=== PATIENT | male | born 1970 | race African-American/Black ===

== ENCOUNTER 2016-05-13 12:55 | Outpatient (CLI) ==
[2014-02-25 23:45] VITALS: BMI 26.1
[2016-05-13 13:44] LABS: CREATININE 1.4 mg/dL (0.60-1.10)
--- NOTE | 2016-05-13 14:06 | CT ---
EXAM: CT cervical spine without contrast. HISTORY: Neck pain. COMPARISON: 02/05/2015. TECHNIQUE: Multiple axial images of the cervical spine were obtained without intravenous contrast. Images were reformatted in the sagittal and coronal planes. FINDINGS: There is less than 0.2 cm retrolisthesis of C3 on C4. Alignment is otherwise normal. Th e vertebral body heights are maintained. There is mild loss of disc height at C3-4 and C5-6. No fra cture identified. Paravertebral soft tissues are without acute abnormality. C2-3: Uncovertebral hypertrophy and facet arthropathy with mild left neural foraminal narrowing. C3-4: Broad-based disc bulge, uncovertebral hypertrophy and facet arthropathy with mild to moderate central canal stenosis and mild right and moderate left neural foraminal narrowing. C4-5: Broad-based disc bulge, uncovertebral hypertrophy and facet arthropathy with mild central can al stenosis and moderate right and severe left neural foraminal narrowing. C5-6: Disc osteophyte formation, uncovertebral hypertrophy and facet arthropathy with moderate cent ral canal stenosis and severe bilateral neural foraminal narrowing. C6-7: Disc osteophyte formation, uncovertebral hypertrophy and facet arthropathy with mild to moder ate central canal stenosis and mild right and moderate left neural foraminal narrowing. C7-T1: Uncovertebral hypertrophy and facet arthropathy with mild neural foraminal narrowing. Since the prior study, there has been no significant interval change. IMPRESSION: 1. No acute fracture. 2. Stable multilevel degenerative changes as described.
== END 2016-05-13 12:56 | disposition home or self-care (01) ==
LOC: RAD 12:55
PROVIDERS: ATTEND Nurse Practitioner
DX: R91.8 Other nonspecific abnormal finding of lung field (principal); M54.2 Cervicalgia
CPT/HCPCS: 36415; 82565

== ENCOUNTER 2016-05-14 12:48 | Outpatient (CLI) ==
[2014-02-25 23:45] VITALS: BMI 26.1
--- NOTE | 2016-05-14 13:52 | CT ---
EXAM: CT of the chest with and without contrast History: Chest pain, abnormal chest radiograph Comparison: Chest radiograph 02/28/2016, chest CT 08/23/2015 Technique: Multiplanar CT images through the thorax were obtained with and without the administrati on of IV contrast Findings: Heart is borderline enlarged. Great vessels are unremarkable. No pathologically enlarge d thoracic lymph nodes. No significant interval change in the small chronic right pleural effusion and chronic right lower p leural thickening with stable chronic area of rounded atelectasis in the right lower lobe. Pneumoth orax. No developing lung opacities. Stable 4 mm left lower lobe lung nodule. No developing lung n odules. Within the visualized upper abdomen, fatty liver. Subacute right lateral sixth and seventh rib frac tures with callous formation. Degenerative disc disease seen within the lower cervical spine. Impression: 1. No change in the small chronic right pleural effusion and chronic right lower pleural thickening with stable chronic area of rounded atelectasis in the right lower lobe. 2. No developing lung opacities. 3. Borderline cardiomegaly. 4. Fatty liver. 5. Subacute right lateral sixth and seventh rib fractures with callous formation.
== END 2016-05-14 12:49 | disposition home or self-care (01) ==
LOC: RAD 12:48
PROVIDERS: ATTEND Nurse Practitioner
DX: R91.8 Other nonspecific abnormal finding of lung field (principal); M54.2 Cervicalgia

== ENCOUNTER 2016-05-27 09:52 | Outpatient (CLI) ==
[2014-02-25 23:45] VITALS: BMI 26.1
== END 2016-05-27 09:53 | disposition home or self-care (01) ==
LOC: WOUND 09:52
PROVIDERS: ATTEND Nurse Practitioner Family
DX: B35.3 Tinea pedis (principal); I69.90 Unspecified sequelae of unspecified cerebrovascular disease
CPT/HCPCS: 99203; 99212

== ENCOUNTER 2016-07-01 10:22 | Outpatient (CLI) ==
[2014-02-25 23:45] VITALS: BMI 26.1
== END 2016-07-01 10:23 | disposition home or self-care (01) ==
LOC: WOUND 10:22
PROVIDERS: ATTEND Nurse Practitioner Family
DX: B35.3 Tinea pedis (principal); I69.90 Unspecified sequelae of unspecified cerebrovascular disease
CPT/HCPCS: 99212

== ENCOUNTER 2016-09-04 09:53 | Outpatient (CLI) ==
[2014-02-25 23:45] VITALS: BMI 26.1
--- NOTE | 2016-09-04 10:56 | CT ---
EXAM: CT abdomen with and without contrast. CT pelvis with and without contrast. HISTORY: Lower abdominal pain, greater on the left. COMPARISON: None available. TECHNIQUE: Multiple axial images of the abdomen and pelvis were obtained prior to and following int ravenous administration of 75 mL of Omnipaque 350, low osmolar. Images reformatted in the coronal p julieta. FINDINGS: A small right pleural effusion with extensive right posterior pleural thickening and subp leural round consolidation in the right lower lobe noted. Two 0.4 cm left lower lobe nodules noted on noncontrast axial images 15 and 17. These findings are stable since at least 11/20/[address] Degenerative changes present throughout the spine. Bilateral spondylosis at L5 noted with slight anterolisthesis of L5 on S1. The liver, gallbladder, pancreas, spleen, adrenal glands, and kidneys are unremarkable. There is mild fluid distension of a few small bowel loops in the left lower quadrant. No bowel wall thickening or transition point identified. Colon is normal in caliber. The appendix is normal. A duodenal diverticulum is present. Urinary bladder is unremarkable. No free fluid, free air or lym phadenopathy identified. Atherosclerotic calcifications are present. IMPRESSION: Suspect mild enteritis.
== END 2016-09-04 09:54 | disposition home or self-care (01) ==
LOC: RAD 09:53
PROVIDERS: ATTEND Nurse Practitioner
DX: R10.9 Unspecified abdominal pain (principal)

== ENCOUNTER 2016-09-17 11:40 | Outpatient (CLI) ==
[2014-02-25 23:45] VITALS: BMI 26.1
--- NOTE | 2016-09-17 12:06 | DI ---
EXAM: Two views of the chest. History: Chest pain, exposure to black mold Comparison: Chest radiograph 02/28/2016 Findings: Heart is borderline enlarged. No significant interval change in the chronic right lower lung infiltrate and chronic small right pleural effusion. Left lung is grossly clear. No pneumotho rax. The visualized osseous structures unchanged. Impression: No significant interval change in cardiopulmonary status.
== END 2016-09-17 11:41 | disposition home or self-care (01) ==
LOC: RAD 11:40
PROVIDERS: ATTEND Nurse Practitioner
DX: S27.301A Unspecified injury of lung, unilateral, initial encounter (principal)

== ENCOUNTER 2016-09-30 19:49 | Emergency (ER) ==
[2016-09-30 19:58] VITALS: BP 167/89; TEMP 98.7; BMI 29.3
[2016-09-30 20:40] LABS: BASOPHILS % (AUTO) 0.5 % (0.0-3.0); EOSINOPHILS # (AUTO) 0.3 K/ul (0.0-0.7); HEMATOCRIT 49.8 % (42.0-52.0); HEMOGLOBIN 16.7 g/dl (14.0-18.0); IMMATURE GRANULOCYTE % (AUTO) 0.2 % (0.0-5.0); LYMPHOCYTES # (AUTO) 1.6 K/uL (0.60-3.4); LYMPHOCYTES % (AUTO) 20.1 (10.0-50.0); MEAN CORPUSCULAR HEMOGLOBIN 30.9 pg (27.0-31.0); MEAN CORPUSCULAR HGB CONC 33.5 (31.8-35.4); MEAN CORPUSCULAR VOLUME 92.1 fl (80.0-94.0); MONOCYTES # (AUTO) 0.9 K/uL (0.4-2.0); MONOCYTES % (AUTO) 10.8 (0-10); NEUTROPHILS # (AUTO) 5.2 K/ul (2.0-6.9); NEUTROPHILS % (AUTO) 64.4; PLATELET COUNT 141 10^3/uL (140-440); RED BLOOD COUNT 5.41 10^6/ul (4.70-6.10); WHITE BLOOD COUNT 8.04 K/ul (4.2-10.2)
--- NOTE | 2016-09-30 20:49 | ED.PDOC ---
General ED Provider: Dr. SUMAN DAVILA Chief Complaint: Abdominal Pain Stated Complaint: Abdominal pain, left side more, had similar episodes last moth , no diarrhea. also hurting in the neck, sharp shooting type of pains. also been coughing, congested. Time Seen by Physician: 20:49 Mode of Arrival: Walk-In Information Source: Patient Primary Care Provider: NADER HER Nursing and Triage Documentation Reviewed and Agree: Yes GI Complaint Exam - Abdominal Pain Complaint/Exam Onset: Gradual Symptoms Are: Still present Timing: Constant Initial Severity: Moderate Current Severity: Moderate Location of Pain: LLQ Radiates To: Reports: Back Character: Reports: Aching, Throbbing Aggravating: Reports: Movement Alleviating: Reports: None Associated Signs and Symptoms: Denies: Diaphoresis, Fever, Cough, Chest pain, Dizziness, Back pain, Constipation, Blood in stool, Dysuria, Urinary frequency, Decreased urine output, Decreased appetite, Discharge, Nausea, Vomiting, Diarrhea, Decreased activity Related History: Reports: Similar episode AAA Risk Factors: Reports: None Cardiac Risk Factors: Reports: None Testicular Torsion Risk Factors: Reports: None Surgical Obstruction Risk Factors: Reports: None Related Surgical History: Reports: None Abdominal Findings: Present: None Differential Diagnoses: Gastroenteritis, Pancreatitis Review of Systems - Review Of Systems Constitutional: Reports: Malaise, Weakness Eyes: Reports: No symptoms Ears, Nose, Mouth, Throat: Reports: No symptoms Respiratory: Reports: No symptoms Cardiac: Reports: No symptoms GI: Reports: Abdomen distended, Abdominal pain : Reports: No symptoms Musculoskeletal: Reports: Muscle pain, Muscle stiffness, Neck pain Skin: Reports: No symptoms Neurological: Reports: No symptoms Endocrine: Reports: No symptoms Hematologic/Lymphatic: Reports: No symptoms All Other Systems: Reviewed and Negative Past Medical History - Past Medical History Previously Healthy: Yes Endocrine: Reports: None, Dyslipidemia Cardiovascular: Reports: Hypertension Respiratory: Reports: None Hematological: Reports: None Gastrointestinal: Reports: GERD Genitourinary: Reports: None Neuro/Psych: Reports: CVA, Anxiety Musculoskeletal: Reports: Arthritis, Back Pain Cancer: Reports: None - Surgical History General Surgical History: Reports: None - Family History Family History: Reports: None - Social History Smoking Status: Current every day smoker Smoking Cessation Counseling Time: > 3 min - 10 min Hx Substance Use: No Alcohol Screening: Heavy - Immunizations Tetanus Shot up to Date: Yes Physical Exam - Physical Exam Appearance: Ill-appearing, Obese Pain Distress: Mild Eyes: JESSICA, EOMI, Conjunctiva clear ENT: Ears normal, Nose normal, Oropharynx normal Respiratory: Airway patent, Breath sounds clear, Breath sounds equal, Respirations nonlabored Cardiovascular: RRR, Pulses normal, No rub, No murmur GI/: Tender Musculoskeletal: Normal strength, ROM intact, No edema, No calf tenderness Skin: Warm, Dry, Normal color Neurological: Sensation intact, Motor intact, Reflexes intact, Cranial nerves intact, Alert, Oriented Psychiatric: Affect appropriate, Mood appropriate Interpretation - Radiology Interpretation Radiology Interpretation By: Radiologist Radiology Results: Negative Exam Interpreted: CT Scan Critical Care Note - Critical Care Note Total Time (mins): 0 Course - Course Hematology/Chemistry: 09/30/16 20:35 09/30/16 20:35 Orders, Labs, Meds: Lab Review 09/30/16 20:35 WBC 8.04 RBC 5.41 Hgb 16.7 Hct 49.8 MCV 92.1 MCH 30.9 MCHC 33.5 RDW Coeff of Matthew 13.4 Plt Count 141 Immature Gran % (Auto) 0.2 Neut % (Auto) 64.4 Lymph % (Auto) 20.1 [place] % (Auto) 10.8 H Eos % (Auto) 4.0 Baso % (Auto) 0.5 Immature Gran # (Auto) 0.0 Neut # 5.2 Lymph # 1.6 [place] # 0.9 Eos # 0.3 Baso # 0.0 Sodium 140 Potassium 4.0 Chloride 103 Carbon Dioxide 29 Anion Gap 12.0 BUN 19 H Creatinine 1.24 H Estimated GFR (MDRD) 76.00 BUN/Creatinine Ratio 15.32 Glucose 98 Calcium 9.6 Total Bilirubin 0.43 AST 25 ALT 36 Alkaline Phosphatase 81 Total Protein 7.6 Albumin 3.8 Globulin 3.8 Albumin/Globulin Ratio 1.00 Amylase 63 Lipase 60 Orders Category Date Time Status AMYLASE Stat LAB 09/30/16 20:35 Completed CBC W/ AUTO DIFF Stat LAB 09/30/16 20:35 Completed COMPREHENSIVE METABOLIC PANEL Stat LAB 09/30/16 20:35 Completed LIPASE Stat LAB 09/30/16 20:[address] ABDOMEN/PELVIS WO CONTRAST Stat RADS 09/30/16 20:[address] CERVICAL SPINE W/O CONTRAST Stat RADS 09/30/16 20:[address] CHEST W/O CONTRAST Stat RADS 09/30/16 20:58 Completed Vital Signs: Temp Pulse Resp BP Pulse Ox 09/30/16 19:50 98.7 F 73 20 167/89 H 93 L Departure - Departure Time of Disposition: 21:38 Disposition: HOME SELF-CARE Discharge Problem: Acute upper respiratory infection Instructions: Upper Respiratory Infection (ED) Condition: Stable Pt referred to PMD for follow-up: Yes Additional Instructions: advised to quite smoking. If not better needs f/u PMD take medication with food. Prescriptions: Cephalexin [Keflex] 500 mg PO Q12HR #20 capsule Prednisone 10 mg PO BIDWM #14 tablet Allergies/Adverse Reactions: Allergies No Known Allergies Allergy (Verified 09/30/16 19:57) Home Medications: Ambulatory Orders Enalapril Maleate [Vasotec] 10 mg PO DAILY 11/01/12 Budesonide/Formoterol Fumarate [Symbicort 80-4.5 Mcg Inhaler] 2 inh INH BID 10/07 Ranitidine HCl [Zantac] 150 mg PO BIDAC 02/25/14 Aspirin 81 mg PO ONCE 11/13/15 Atorvastatin Calcium [Lipitor] 20 mg PO DAILY 11/13/15 Cephalexin [Keflex] 500 mg PO Q12HR #20 capsule 09/30/16 Prednisone 10 mg PO BIDWM #14 tablet 09/30/16 Disposition Discussed With: Patient
[2016-09-30 20:57] LABS: ALBUMIN 3.8 g/dL (3.4-5.0); BILIRUBIN,TOTAL 0.43 mg/dL (0.00-1.20); BUN/CREATININE RATIO 15.32; CALCIUM 9.6 mg/dL (8.2-10.2); CREATININE 1.24 mg/dL (0.60-1.10); TOTAL PROTEIN 7.6 g/dL (6.4-8.2)
--- NOTE | 2016-09-30 21:25 | CT ---
EXAM: CT cervical spine without contrast. HISTORY: Neck pain. COMPARISON: 05/13/2016. TECHNIQUE: Multiple axial images of the cervical spine were obtained without intravenous contrast. Images were reformatted in the sagittal and coronal planes. FINDINGS: Alignment is normal. Vertebral body heights are maintained. Moderate loss of disc heigh t at C5-6 with more mild loss of disc height at C3-4 and C6-7. No fracture or subluxation detected. Paravertebral soft tissues are without acute abnormality. C2-3: No neural compromise. C3-4: Uncovertebral hypertrophy and facet arthropathy with mild right and moderate left neural fora lauren narrowing. Posterior disc bulge causes mild spinal stenosis. C4-5: Broad-based disc bulge, uncovertebral hypertrophy and facet arthropathy with mild spinal sten osis and mild to moderate right and moderate to severe left neural foraminal narrowing. C5-6: Disc osteophyte formation, uncovertebral hypertrophy and facet arthropathy with moderate spin al stenosis and severe neural foraminal narrowing. C6-7: Disc osteophyte formation, uncovertebral hypertrophy and facet arthropathy with mild spinal s tenosis and moderate left neural foraminal narrowing. C7-T1: Uncovertebral hypertrophy and facet arthropathy with mild neural foraminal narrowing IMPRESSION: 1. No fracture. 2. Multilevel degenerative changes as described, greatest at C5-6.
--- NOTE | 2016-09-30 21:31 | CT ---
EXAM: CT scan thorax without contrast HISTORY: Cough pain COMPARISON: CT scan thorax 05/14/2016 FINDINGS: Contiguous axial images obtained through the thorax without contrast utilizing 5-mm colli mation. Sagittal and coronal reconstructions were imaged and reviewed.. The thoracic inlet is unre markable. There are subcentimeter pretracheal and AP window lymph nodes.. The heart is top normal in size without pericardial effusion.. The left lung is clear. There is a stable tiny right pleural effusion with right basilar pleural thickening and dependent atelectasis.. There is stable appeari ng likely round atelectasis at the right lung base.. There is stable left adrenal adenoma measuring 15.7 mm. IMPRESSION: Significant change in the small chronic right pleural effusion with adjacent pleural thickening and atelectasis. Borderline cardiomegaly without pericardial effusion.
--- NOTE | 2016-09-30 21:32 | CT ---
EXAM: CT abdomen pelvis without contrast TECHNIQUE: Helical axial CT of the abdomen pelvis was performed without contrast with coronal and s agittal reconstructions. COMPARISON: CT abdomen pelvis from 09/04/2016 HISTORY: Abdominal pain FINDINGS: There is no acute intervening abnormality. Again seen are some pleural parenchymal shrestha es in the right base consistent with atelectasis and effusion. There is no intervening free air zoey e fluid or bowel wall thickening or edema or obstruction or ileus. There are no pathologic lymph no jasson. There is some mild atherosclerosis. There are degenerative changes in the lumbar spine partic ularly at the lumbosacral junction. There are bilateral pars defects with trace anterolisthesis at the lumbosacral junction. Again seen is a duodenal diverticulum. The appendix is normal as well as the gallbladder. The liver, spleen, pancreas, kidneys are unremarkable with no kidney stones and n o hydronephrosis. The urinary bladder is normal with no filling defects. IMPRESSION: 1. No acute intervening abnormality. 2. Continued atelectasis and small effusion in the right base. 3. Duodenal diverticulum. 4. Bilateral pars defects at the lumbosacral junction with trace anterolisthesis.
[2016-09-30] MEDS ORDERED: DECADRON 4 MG/ML SDV IM STA (21:39)
[2016-09-30] MEDS ORDERED: KEFLEX PO STA (21:39)
== END 2016-09-30 22:07 | disposition home or self-care (01) ==
LOC: ED 19:49
DX: J06.9 Acute upper respiratory infection, unspecified (principal); R10.32 Left lower quadrant pain; M54.2 Cervicalgia; I10 Essential (primary) hypertension; E78.5 Hyperlipidemia, unspecified; Z86.73 Personal history of transient ischemic attack (TIA), and cerebral infarction without residual deficits; F17.210 Nicotine dependence, cigarettes, uncomplicated; Z79.899 Other long term (current) drug therapy
CPT/HCPCS: 36415; 80053; 82150; 83690; 85025; 96372; 99283

== ENCOUNTER 2016-10-08 12:24 | Emergency (ER) ==
[2016-10-08 12:32] VITALS: BP 139/89; TEMP 97.8; BMI 29.2
[2016-10-08 12:52] LABS: BASOPHILS # (AUTO) 0.1 K/uL (0-0.2); BASOPHILS % (AUTO) 0.6 % (0.0-3.0); EOSINOPHILS # (AUTO) 0.1 K/ul (0.0-0.7); EOSINOPHILS % (AUTO) 0.6 % (0.0-7.0); HEMATOCRIT 49.3 % (42.0-52.0); HEMOGLOBIN 16.9 g/dl (14.0-18.0); IMMATURE GRANULOCYTE % (AUTO) 0.6 % (0.0-5.0); LYMPHOCYTES # (AUTO) 1.1 K/uL (0.60-3.4); LYMPHOCYTES % (AUTO) 13.9 (10.0-50.0); MEAN CORPUSCULAR HEMOGLOBIN 31.2 pg (27.0-31.0); MEAN CORPUSCULAR HGB CONC 34.3 (31.8-35.4); MEAN CORPUSCULAR VOLUME 91.1 fl (80.0-94.0); MONOCYTES # (AUTO) 0.5 K/uL (0.4-2.0); MONOCYTES % (AUTO) 6.1 (0-10); NEUTROPHILS # (AUTO) 6.3 K/ul (2.0-6.9); NEUTROPHILS % (AUTO) 78.2; PLATELET COUNT 191 10^3/uL (140-440); RED BLOOD COUNT 5.41 10^6/ul (4.70-6.10); WHITE BLOOD COUNT 8.07 K/ul (4.2-10.2)
[2016-10-08 13:18] LABS: ALBUMIN 4.2 g/dL (3.4-5.0); ALBUMIN/GLOBULIN RATIO 1.11; ANION GAP 13.6; BILIRUBIN,TOTAL 0.56 mg/dL (0.00-1.20); BUN/CREATININE RATIO 20.86; CALCIUM 9.6 mg/dL (8.2-10.2); CREATININE 1.39 mg/dL (0.60-1.10); POTASSIUM 4.6 mmol/L (3.5-5.1); TROPONIN I 0.022 ng/ml (0.0000-0.4000)
--- NOTE | 2016-10-08 13:23 | CT ---
EXAM: CT Abdomen without contrast. CT Pelvis without contrast. HISTORY: Abdominal distension. Lower abdominal pain. COMPARISON: 09/30/2016. TECHNIQUE: Multiple axial images of the abdomen and pelvis were obtained without intravenous contra st. Images were reformatted in the coronal plane. FINDINGS: Please note that evaluation of the abdominal and pelvic structures is limited due to lack of intravenous contrast. Right basilar pleural thickening with small amount of fluid and rounded consolidation in the posteri or right lower lobe appear stable, as do left lower lobe micronodules. Degenerative changes present in the spine. Bilateral spondylolysis at L5 noted. The liver, gallbladder, pancreas, spleen, adrenal glands, and kidneys demonstrate normal contour. N o calcified renal stones or hydronephrosis detected. Duodenal diverticulum is present. The bowel is normal in course and caliber without evidence for ob struction or inflammatory process. The appendix is normal. Urinary bladder is unremarkable. No fr ee fluid or free air identified. Atherosclerotic calcifications are present. IMPRESSION: No acute abnormality within the abdomen or pelvis.
--- NOTE | 2016-10-08 13:28 | CT ---
EXAM: CT chest without contrast HISTORY: Cough COMPARISON: CT abdomen pelvis same day and CT chest 09/30/2016 with multiple priors TECHNIQUE: Serial axial images of the chest were obtained from the lung apices to the upper abdomen without contrast. These were viewed in multiple planes. FINDINGS: The thyroid is normal. The aorta is unremarkable. The pulmonary arteries are upper limi t of normal. The heart is normal in size without pericardial effusion. There are no pathologically enlarged mediastinal or hilar lymph nodes. Chronic right effusion with dense consolidation and pleural thickening is unchanged. There is mild p atchy air trapping. There is a 0.3 cm left lower lobe pulmonary nodule on image 48. The airways ar e patent. The liver demonstrates minimal low attenuation. Soft tissues are unremarkable. The osseous structu res are unremarkable. IMPRESSION: 1. No significant change in right pleural effusion with adjacent pleural thickening. 2. 0.3 cm left lower lobe pulmonary nodule is stable since 02/20/2009 and considered benign. 3. Mild low attenuation of the liver suggestive of hepatic steatosis.
[2016-10-08 13:30] LABS: ADD URINE MICROSCOPIC NO; BILIRUBIN,URINE Negative (NEGATIVE); KETONES,URINE Negative (NEGATIVE); LEUKOCYTE ESTERASE ,URINE Negative (NEGATIVE); NITRITE,URINE Negative (NEGATIVE); PH,URINE 5.5 (5-9); PROTEIN,URINE Negative (NEGATIVE); URINE, BLOOD Negative (NEGATIVE)
[2016-10-08 13:38] LABS: COCAIN SCREEN,URINE NEGATIVE (NEGATIVE)
[2016-10-08] MEDS ORDERED: ATIVAN IM STA (14:04)
--- NOTE | 2016-10-08 14:09 | ED.PDOC ---
General ED Provider: Dr. RAMSES TILLMAN Chief Complaint: Dizziness Stated Complaint: dizziness, neck pain Time Seen by Physician: 12:27 Mode of Arrival: Walk-In Information Source: Patient Exam Limitations: No limitations Primary Care Provider: NADER HER Nursing and Triage Documentation Reviewed and Agree: Yes Miscellaneous Complaint Exam - Complex/Multi-System Complaint/Exam Onset/Duration: pt uncertain Symptoms Are: Still present Episodes Lasting: Days Initial Severity: Moderate Current Severity: Mild Location of Pain: neck posterior chest pain Pain Radiates to: neck upper back Character: dull Associated Signs and Symptoms: Denies: Decreased responsiveness, Confusion, Agitation, Dizziness, Weakness, Syncope, Headache, Short of air, Cough, Wheezing , Hemoptysis, Chest pain, Palpitations, Edema, Nausea, Vomiting, Diarrhea, Abdominal pain, Back pain, Dysuria, Hematemesis, Melena, Decreased oral intake, Fever, Diaphoresis, Immunocompromised, Anticoagulation Therapy, Recent medication changes, 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 Quality Indicators for AMI: EKG in 10min. Quality Indicator For Non-Traumatic Chest Pain/Syncope: EKG Performed Review of Systems - Review Of Systems Constitutional: Reports: No symptoms Eyes: Reports: No symptoms Ears, Nose, Mouth, Throat: Reports: No symptoms Respiratory: Reports: No symptoms Cardiac: Reports: No symptoms GI: Reports: No symptoms : Reports: No symptoms Musculoskeletal: Reports: Neck pain Skin: Reports: No symptoms Neurological: Reports: No symptoms Endocrine: Reports: No symptoms Hematologic/Lymphatic: Reports: No symptoms All Other Systems: Reviewed and Negative Past Medical History - Past Medical History Previously Healthy: Yes Endocrine: Reports: None, Dyslipidemia Cardiovascular: Reports: Hypertension Respiratory: Reports: None Hematological: Reports: None Gastrointestinal: Reports: GERD Genitourinary: Reports: None Neuro/Psych: Reports: CVA, Anxiety Musculoskeletal: Reports: Arthritis, Back Pain Cancer: Reports: None - Surgical History General Surgical History: Reports: None - Family History Family History: Reports: None - Social History Smoking Status: Current every day smoker Hx Substance Use: No Alcohol Screening: Heavy Physical Exam - Physical Exam Appearance: Well-appearing, No pain distress, Well-nourished Eyes: JESSICA, EOMI, Conjunctiva clear ENT: Ears normal, Nose normal, Oropharynx normal Respiratory: Airway patent, Breath sounds clear, Breath sounds equal, Respirations nonlabored Cardiovascular: RRR, Pulses normal, No rub, No murmur GI/: Soft, Nontender, No masses, Bowel sounds normal, No Organomegaly Musculoskeletal: Normal strength, ROM intact, No edema, No calf tenderness Skin: Warm, Dry, Normal color Neurological: Sensation intact, Motor intact, Reflexes intact, Cranial nerves intact, Alert, Oriented Psychiatric: Affect appropriate, Mood appropriate Interpretation - Radiology Interpretation Radiology Interpretation By: Radiologist Radiology 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: 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 Rhythm: Sinus Ectopy: None - EKG Interpretation Rate: Normal Rhythm: Sinus (1 mm) Ectopy: None [place]: NL (tion) ST Segment: Other (1 mm JEREMIAS avr rule out triple vessel disease or lad main stem obstruction) Physician Notification - Case Discussed Physician Notified: poonam CHENG Time of Notification: 14:18 Critical Care Note - Critical Care Note Total Time (mins): 0 Course - Course Hematology/Chemistry: 10/08/16 12:45 10/08/16 12:45 Orders, Labs, Meds: Lab Review 10/08/16 10/08/16 12:45 13:15 WBC 8.07 RBC 5.41 Hgb 16.9 Hct 49.3 MCV 91.1 MCH 31.2 H MCHC 34.3 RDW Coeff of [place] 13.6 Plt Count 191 Immature Gran % (Auto) 0.6 Neut % (Auto) 78.2 Lymph % (Auto) 13.9 [place] % (Auto) 6.1 Eos % (Auto) 0.6 Baso % (Auto) 0.6 Immature Gran # (Auto) 0.1 Neut # 6.3 Lymph # 1.1 [place] # 0.5 Eos # 0.1 Baso # 0.1 Sodium 138 Potassium 4.6 Chloride 102 Carbon Dioxide 27 Anion Gap 13.6 BUN 29 H Creatinine 1.39 H Estimated GFR (MDRD) 67.00 BUN/Creatinine Ratio 20.86 Glucose 118 H Calcium 9.6 Total Bilirubin 0.56 AST 27 ALT 39 Alkaline Phosphatase 71 Total Creatine Kinase 90 Troponin I 0.0220 Total Protein 8.0 Albumin 4.2 Globulin 3.8 Albumin/Globulin Ratio 1.11 Urine Color Yellow Urine Clarity Clear Urine pH 5.5 Ur Specific [place] <=1.005 Urine Protein Negative Urine Glucose (UA) Negative Urine Ketones Negative Urine Blood Negative Urine Nitrite Negative Urine Bilirubin Negative Urine Urobilinogen 0.2 Ur Leukocyte Esterase Negative Urine Opiates Screen Negative Ur Oxycodone Screen Negative Urine Methadone Screen Negative Ur Propoxyphene Screen Negative Ur Barbiturates Screen Negative U Tricyclic Antidepress Negative Ur Phencyclidine Scrn Negative Ur Amphetamine Screen Negative U Methamphetamines Scrn Negative U Benzodiazepines Scrn Negative Urine Cocaine Screen Negative U Cannabinoids Screen Negative Orders Category Date Time Status EKG-(ED ONLY) Stat CARDIO 10/08/16 12:38 Completed CBC W/ AUTO DIFF Stat LAB 10/08/16 12:45 Completed COMPREHENSIVE METABOLIC PANEL Stat LAB 10/08/16 12:45 Completed CREATINE KINASE Stat LAB 10/08/16 12:45 Completed TROPONIN I Stat LAB 10/08/16 12:45 Completed URINALYSIS C & S IF INDICATED Stat LAB 10/08/16 13:15 Completed URINE DRUG SCREEN (RAPID FOR ED) [DRUG SCREEN, URINE, LAB 10/08/16 13:15 Completed RAPID] Stat Lorazepam Inj [Ativan] MEDS 10/08/16 14:04 Discontinued 1 mg IM ONCE STA CT ABDOMEN/PELVIS WO CONTRAST Stat RADS 10/08/16 12:[address] CHEST W/O CONTRAST Stat RADS 10/08/16 12:37 Completed Medications Discontinued Medications Generic Name Dose Route Start Last Admin Trade Name Renny PRN Reason Stop Dose Admin Lorazepam 1 mg 10/08/16 14:04 Ativan IM 10/08/16 14:05 ONCE STA Vital Signs: Temp Pulse Resp BP Pulse Ox 10/08/16 12:27 97.8 F 74 16 139/89 94 L Departure - Departure Time of Disposition: 14:17 Disposition: TSF SHORT-TRM HOSP Discharge Problem: Atypical chest pain, Dizziness Instructions: Dizziness (ED) Condition: Good Pt referred to PMD for follow-up: No Additional Instructions: Please call your Family Physician as soon as possible to schedule a follow-up appointment. Allergies/Adverse Reactions: Allergies No Known Allergies Allergy (Verified 10/08/16 12:26) Home Medications: Ambulatory Orders Enalapril Maleate [Vasotec] 10 mg PO DAILY 11/01/12 Budesonide/Formoterol Fumarate [Symbicort 80-4.5 Mcg Inhaler] 2 inh INH BID 10/07 Ranitidine HCl [Zantac] 150 mg PO BIDAC 02/25/14 Aspirin 81 mg PO ONCE 11/13/15 Atorvastatin Calcium [Lipitor] 20 mg PO DAILY 11/13/15 Cephalexin [Keflex] 500 mg PO Q12HR #20 capsule 09/30/16 Prednisone 10 mg PO BIDWM #14 tablet 09/30/16 Disposition Discussed With: Patient
== END 2016-10-08 15:09 | disposition short-term general hospital (02) ==
LOC: ED 12:24
DX: R07.89 Other chest pain (principal); R42 Dizziness and giddiness; M54.2 Cervicalgia; E78.5 Hyperlipidemia, unspecified; I10 Essential (primary) hypertension; F17.210 Nicotine dependence, cigarettes, uncomplicated; Z86.73 Personal history of transient ischemic attack (TIA), and cerebral infarction without residual deficits; Z79.899 Other long term (current) drug therapy
CPT/HCPCS: 36415; 80053; 80306; 81001; 82550; 84484; 85025; 93005; 93010; 96372; 99285

== ENCOUNTER 2016-10-08 15:16 | Outpatient (CLI) ==
[2016-10-08 12:32] VITALS: BMI 29.2
== END 2016-10-08 15:17 | disposition short-term general hospital (02) ==
LOC: AMBL 15:16
PROVIDERS: ATTEND Internal Medicine
DX: R94.31 Abnormal electrocardiogram [ECG] [EKG] (principal)

== ENCOUNTER 2016-10-16 09:23 | Outpatient (CLI) ==
--- NOTE | 2016-10-16 10:59 | CT ---
Exam: CT lumbar spine without contrast. Clinical indication: Low back pain. TECHNIQUE: Axial unenhanced CT images from the lower thoracic spine through the mid sacrum were obt ained followed by coronal and sagittal reformats. Comparison is made to the prior study dated 01/22/2015. Findings: There are five non-rib bearing lumbar vertebra. There is a stable minimal anterolisthesis of L5 on S1 of approximately 0.4 cm secondary to bilateral pars interarticularis defects. The T12-L1 level is within normal limits for the patient's age, without spinal stenosis or neural fo raminal narrowing. At the L1-L2 level there is mild facet degenerative changes, causing minimal if any bilateral neural foraminal narrowing. At the L2-L3 level there is mild bilateral facet hypertrophic degenerative changes, causing minimal right and mild left neural foraminal narrowing. At the L3-L4 level there is moderate degenerative disc disease associate with a mild broad-based pos terior disc bulge and bilateral facet hypertrophic degenerative changes, causing mild bilateral neur al foraminal narrowing. At the L4-L5 level there is a moderate broad-based posterior disc bulge associate with bilateral fac et hypertrophic degenerative changes, causing severe right and moderate to severe left neural forami nal narrowing. At the L5-S1 level note is again made of the anterolisthesis associate with the bilateral pars inter articularis defects. There is moderate degenerative disc disease associate with a moderate broad-ba sed posterior disc bulge and facet hypertrophic degenerative changes, causing moderate to severe priscilla ateral neural foraminal narrowing. Overall the appearance has mildly progressed from the prior study. The remainder of the soft tissues are unremarkable. Impression: 1. Mild anterolisthesis of L5 on S1 secondary to bilateral pars interarticularis defects. 2. Multilevel degenerative changes which appear to have mildly progressed from the prior study, wit h bilateral neural foraminal narrowing as described above on the level by level basis.
== END 2016-10-16 09:24 | disposition home or self-care (01) ==
LOC: RAD 09:23
PROVIDERS: ATTEND Nurse Practitioner
DX: M54.5 Low back pain (principal)

== ENCOUNTER 2016-10-19 09:27 | Outpatient (CLI) ==
--- NOTE | 2016-10-19 10:22 | CT ---
Exam: CT of the brain without intravenous contrast. Comparison: 09/19/2015. Reason for exam: Headache. FINDINGS: No acute intracranial hemorrhage, mass effect, ventricular dilatation, or territorial inf arction. The quadrigeminal and ambient cisterns are patent. There is no extraaxial fluid collectio n. The calvarium is intact. Mild mucosal thickening in the ethmoid sinuses. The imaged portions o f the sphenoid, maxillary and mastoid air cells are unopacified. Impression: 1. No acute intracranial findings. 2. Ethmoid sinus disease likely chronic.
== END 2016-10-19 09:28 ==
LOC: RAD 09:27
PROVIDERS: ATTEND Nurse Practitioner
DX: R51 Headache (principal)

== ENCOUNTER → 2016-10-20 | Outpatient (POV) | LOC: OUTPT 00:01 | PROVIDERS: ATTEND Otolaryngology | DX: R42 Dizziness and giddiness (principal) | CPT/HCPCS: 92557; 92567 ==

== ENCOUNTER 2016-10-31 20:26 | Emergency (ER) ==
[2016-10-31 20:34] VITALS: BP 154/98; TEMP 98.2; BMI 31.7
[2016-10-31] MEDS ORDERED: MOTRIN SUSP PO STA (20:40)
--- NOTE | 2016-10-31 21:12 | CT ---
EXAM: Noncontrast CT of the chest HISTORY: Cough, chills COMPARISON: 10/08/2016 TECHNIQUE: Noncontrast CT of the chest FINDINGS: Two subcentimeter left lower lobe pulmonary nodule is seen which is stable dating back to at least 0 06/05/2008. There is no significant change in the right pleural thickening and small pleural effusio n. The right lower lobe pleural-based density is also not significantly changed and suggestive of r ound atelectasis. There is similar right lung volume loss. No focal consolidation or pneumothorax is seen. The heart is enlarged. No mediastinal lymphadenopathy is seen. Evaluation of the dae is limited w ithout IV contrast. Please see abdominal CT report for abdominal findings. There are degenerative changes of the cervica l spine are seen. IMPRESSION: No significant change in the small right pleural effusion and pleural thickening. No significant change in the right lower lobe opacity which is suggestive of round atelectasis. Stable left lower lobe subcentimeter pulmonary nodules dating back to at least 06/04/2008. Cardiomegaly.
[2016-10-31 21:15] LABS: BASOPHILS % (AUTO) 0.5 % (0.0-3.0); EOSINOPHILS # (AUTO) 0.2 K/ul (0.0-0.7); EOSINOPHILS % (AUTO) 2.5 % (0.0-7.0); HEMATOCRIT 48.2 % (42.0-52.0); HEMOGLOBIN 16.2 g/dl (14.0-18.0); IMMATURE GRANULOCYTE % (AUTO) 0.4 % (0.0-5.0); LYMPHOCYTES # (AUTO) 1.6 K/uL (0.60-3.4); LYMPHOCYTES % (AUTO) 19.5 (10.0-50.0); MEAN CORPUSCULAR HEMOGLOBIN 31.1 pg (27.0-31.0); MEAN CORPUSCULAR HGB CONC 33.6 (31.8-35.4); MEAN CORPUSCULAR VOLUME 92.5 fl (80.0-94.0); MONOCYTES # (AUTO) 0.8 K/uL (0.4-2.0); MONOCYTES % (AUTO) 9.7 (0-10); NEUTROPHILS # (AUTO) 5.4 K/ul (2.0-6.9); NEUTROPHILS % (AUTO) 67.4; PLATELET COUNT 151 10^3/uL (140-440); RED BLOOD COUNT 5.21 10^6/ul (4.70-6.10); WHITE BLOOD COUNT 8.04 K/ul (4.2-10.2)
--- NOTE | 2016-10-31 21:18 | CT ---
EXAM: Noncontrast CT of the abdomen and pelvis HISTORY: Abdominal pain COMPARISON: 10/08/2016 TECHNIQUE: Noncontrast CT of the abdomen and pelvis FINDINGS: Please see chest CT report for chest findings. Noncontrast technique limits evaluation of the abdominal viscera. The unenhanced liver, gallbladder, spleen, adrenals, kidneys and pancreas are unremarkable. Mild hyperdense material layers within the gastric fundus. There is a diverticulum of the duodenum. No abnormal small bowel dilation is seen. The colon is underdistended. The appendix is not abnorma lly enlarged. No free air or free fluid is seen. There is calcified atherosclerotic plaque of the aorta and its b ranches. There is multilevel degenerative disc disease, up to moderate to severe at L3-4 and severe at L5-S1. There is bilateral L5 spondylolysis. A tiny fat containing umbilical hernia is seen. IMPRESSION: Mild hyperdense material layering in the gastric fundus likely representing ingested material given the density. Blood products are felt to be less likely. Otherwise no evidence of an acute intra-abdominal process.
[2016-10-31 21:26] LABS: BILIRUBIN,URINE 1+ (NEGATIVE); KETONES,URINE Negative (NEGATIVE); LEUKOCYTE ESTERASE ,URINE Negative (NEGATIVE); NITRITE,URINE Negative (NEGATIVE); PH,URINE 5.5 (5-9); PROTEIN,URINE 1+ (NEGATIVE); URINE, BLOOD Negative (NEGATIVE)
[2016-10-31 21:37] LABS: ADD URINE MICROSCOPIC YES
[2016-10-31 21:49] LABS: TROPONIN I 0.014 ng/ml (0.0000-0.4000)
[2016-10-31 21:52] LABS: CREATINE KINASE MB 2.3 ng/ml (0.0-3.6)
[2016-10-31 21:56] LABS: FLU INTERNAL QC INTERNAL QC VALID; RAPID FLU A NEGATIVE (NEGATIVE); RAPID FLU B NEGATIVE (NEGATIVE)
[2016-10-31 21:56] LABS: ERYTHROCYTE SEDIMENTATION RATE 12 mm/hr (0-15); ESR INTERNAL QC INTERNAL QC VALID
[2016-10-31 22:00] LABS: ALBUMIN 4.1 g/dL (3.4-5.0); ALBUMIN/GLOBULIN RATIO 1.21; ANION GAP 18.1; BILIRUBIN,TOTAL 0.64 mg/dL (0.00-1.20); BUN/CREATININE RATIO 14.5; CALCIUM 9.7 mg/dL (8.2-10.2); CREATININE 1.31 mg/dL (0.60-1.10); POTASSIUM 4.1 mmol/L (3.5-5.1); TOTAL PROTEIN 7.5 g/dL (6.4-8.2)
--- NOTE | 2016-10-31 22:03 | ED.PDOC ---
General ED Provider: Dr. GEMINI LANTIGUA-ER Chief Complaint: Non-specific Complaint Stated Complaint: im coughing and having chills Time Seen by Physician: 20:30 Mode of Arrival: Wheelchair Information Source: Patient, Family Exam Limitations: No limitations Primary Care Provider: NADER HER Nursing and Triage Documentation Reviewed and Agree: Yes Respiratory Complaint Exam - Respiratory Complaint/Exam Onset/Duration: 3 days Symptoms Are: Still present Timing: Constant Initial Severity: Mild Current Severity: Moderate Location: Chest Character: Reports: Productive cough Aggravating: Reports: URI Alleviating: Reports: None Associated Signs and Symptoms: Reports: Chills, URI. Denies: Rapid breathing, Dyspnea, Fever, Chest pain, Pleuritic chest pain, Wheezing, Hemoptysis, Dizziness, Calf pain, Calf swelling, Edema, Nasal congestion, Hoarseness, Sinus discomfort, Vomiting, Sore throat, Weight loss, Decreased oral intake, Increased thirst, Increased appetite, Increased urination History of Healthcare-Acquired Pneumonia: No Home Oxygen Use: No Recent Stress Test: No Recent Echo/LV Function: No Current Antibiotic Use: No Current Asthma Medication Use: No Respiratory Distress: None Inadequate Respiratory Effort: No Dysphagia Present: No Stridor Present: No JVD Present: No Accessory Muscle Use: No Retractions: Not Present Sinus Tenderness: None Grunting Respirations: No Kussmaul Respirations: No Differential Diagnoses: Pneumonia, Bronchitis, URI Non-Traumatic Chest Pain Syncope: EKG Performed Review of Systems - Review Of Systems Constitutional: Reports: Chills Eyes: Reports: No symptoms Ears, Nose, Mouth, Throat: Reports: No symptoms Respiratory: Reports: Cough Cardiac: Reports: No symptoms GI: Reports: No symptoms : Reports: No symptoms Musculoskeletal: Reports: No symptoms Skin: Reports: No symptoms Neurological: Reports: No symptoms Endocrine: Reports: No symptoms Hematologic/Lymphatic: Reports: No symptoms All Other Systems: Reviewed and Negative Past Medical History - Past Medical History Previously Healthy: Yes Endocrine: Reports: None, Dyslipidemia Cardiovascular: Reports: Hypertension Respiratory: Reports: None Hematological: Reports: None Gastrointestinal: Reports: GERD Genitourinary: Reports: None Neuro/Psych: Reports: CVA, Anxiety Musculoskeletal: Reports: Arthritis, Back Pain Cancer: Reports: None - Surgical History General Surgical History: Reports: None - Family History Family History: Reports: None - Social History Smoking Status: Current every day smoker Hx Substance Use: No Alcohol Screening: Heavy Lives: With family - Immunizations Tetanus Shot up to Date: No Physical Exam - Physical Exam Appearance: Well-appearing, No pain distress, Well-nourished Eyes: JESSICA, EOMI, Conjunctiva clear ENT: Ears normal, Nose normal, Oropharynx normal Neck: Supple Respiratory: Airway patent, Breath sounds clear, Breath sounds equal, Respirations nonlabored Cardiovascular: RRR, Pulses normal, No rub, No murmur GI/: Soft, Nontender, No masses, Bowel sounds normal, No Organomegaly Musculoskeletal: Normal strength, ROM intact, No edema, No calf tenderness Skin: Warm, Dry, Normal color Neurological: Sensation intact, Motor intact, Reflexes intact, Cranial nerves intact, Alert, Oriented Psychiatric: Affect appropriate, Mood appropriate Critical Care Note - Critical Care Note Total Time (mins): 0 Course - Course Hematology/Chemistry: 10/31/16 21:10 10/31/16 21:10 Orders, Labs, Meds: Lab Review 10/31/16 10/31/16 10/31/16 20:40 20:44 21:10 WBC 8.04 RBC 5.21 Hgb 16.2 Hct 48.2 MCV 92.5 MCH 31.1 H MCHC 33.6 RDW Coeff of Matthew 13.3 Plt Count 151 Immature Gran % (Auto) 0.4 Neut % (Auto) 67.4 Lymph % (Auto) 19.5 Jack % (Auto) 9.7 Eos % (Auto) 2.5 Baso % (Auto) 0.5 Immature Gran # (Auto) 0.0 Neut # 5.4 Lymph # 1.6 Jack # 0.8 Eos # 0.2 Baso # 0.0 ESR 12 Sodium 138 Potassium 4.1 Chloride 102 Carbon Dioxide 22 Anion Gap 18.1 BUN 19 H Creatinine 1.31 H Estimated GFR (MDRD) 71.00 BUN/Creatinine Ratio 14.50 Glucose 113 H Calcium 9.7 Total Bilirubin 0.64 AST 27 ALT 29 Alkaline Phosphatase 86 Total Creatine Kinase 129 CK-MB (CK-2) 2.3 CK-MB (CK-2) % 1.89926 Troponin I 0.0140 Total Protein 7.5 Albumin 4.1 Globulin 3.4 Albumin/Globulin Ratio 1.21 Urine Color Yellow Urine Clarity Slightly Urine pH 5.5 Ur Specific [place] >=1.030 Urine Protein 1+ Urine Glucose (UA) Negative Urine Ketones Negative Urine Blood Negative Urine Nitrite Negative Urine Bilirubin 1+ Urine Urobilinogen 1.0 Ur Leukocyte Esterase Negative Ur Squamous Epith Cells Not present Urine Mucus 2+ Influenza A (Rapid) Negative Influenza B (Rapid) Negative Orders Category Date Time Status EKG-(ED ONLY) Stat CARDIO 10/31/16 20:38 Ordered BLOOD CULTURE Stat LAB 10/31/16 21:10 Received CBC W/ AUTO DIFF Stat LAB 10/31/16 21:10 Completed COMPREHENSIVE METABOLIC PANEL Stat LAB 10/31/16 21:10 Completed CREATINE KINASE Stat LAB 10/31/16 21:10 Completed EHRLICHIA DNA, PCR Stat LAB 10/31/16 21:10 Received ESR Stat LAB 10/31/16 21:10 Completed MOLECULAR GROUP A STREP Stat LAB 10/31/16 20:46 Results RAPID FLU A/B Stat LAB 10/31/16 20:44 Completed JONI MTN SPOTTED FEVER,IgG Stat LAB 10/31/16 21:10 Received JONI MTN SPOTTED FEVER,IgM Stat LAB 10/31/16 21:10 Received STREP SCREEN Stat LAB 10/31/16 20:46 Results TROPONIN I Stat LAB 10/31/16 21:10 Completed URINALYSIS C & S IF INDICATED Stat LAB 10/31/16 20:40 Completed Ibuprofen Susp [Motrin Susp] MEDS 10/31/16 20:40 Discontinued 600 mg PO ONCE STA CT ABDOMEN/PELVIS WO CONTRAST Stat RADS 10/31/16 20:[address] CHEST W/O CONTRAST Stat RADS 10/31/16 20:39 Completed Medications Discontinued Medications Generic Name Dose Route Start Last Admin Trade Name Renny PRN Reason Stop Dose Admin Ibuprofen 600 mg 10/31/16 20:40 10/31/16 20:43 Motrin Susp PO 10/31/16 20:41 600 mg ONCE STA Administration Vital Signs: Temp Pulse Resp BP Pulse Ox 10/31/16 20:28 98.2 F 80 16 154/98 H 94 L Departure - Departure Time of Disposition: 22:08 Disposition: HOME SELF-CARE Discharge Problem: Upper respiratory tract infection Qualifiers: URI type: unspecified URI Qualifier Code: (J06.9) Acute upper respiratory infection, unspecified Instructions: Upper Respiratory Infection (ED) Condition: Good Pt referred to PMD for follow-up: Yes Additional Instructions: go ahead and take the plavix and augmentin you have at home--keep appt with dr rojas this week Allergies/Adverse Reactions: Allergies No Known Allergies Allergy (Verified 10/08/16 12:26) Home Medications: Ambulatory Orders Enalapril Maleate [Vasotec] 10 mg PO DAILY 11/01/12 Budesonide/Formoterol Fumarate [Symbicort 80-4.5 Mcg Inhaler] 2 inh INH BID 10/07 Ranitidine HCl [Zantac] 150 mg PO BIDAC 02/25/14 Aspirin 81 mg PO ONCE 11/13/15 Atorvastatin Calcium [Lipitor] 20 mg PO DAILY 11/13/15 Diazepam 5 mg PO PRN PRN #50 10/20/16 Disposition Discussed With: Patient
== END 2016-10-31 22:20 | disposition home or self-care (01) ==
LOC: ED 20:26
DX: J06.9 Acute upper respiratory infection, unspecified (principal); F17.210 Nicotine dependence, cigarettes, uncomplicated; E78.5 Hyperlipidemia, unspecified; I10 Essential (primary) hypertension; Z86.73 Personal history of transient ischemic attack (TIA), and cerebral infarction without residual deficits; Z79.899 Other long term (current) drug therapy
CPT/HCPCS: 36415; 80053; 81001; 82550; 82553; 84484; 85025; 85651; 86757; 87040; 87651; 87798; 87804; 87880; 93005; 93010; 99283

== ENCOUNTER 2016-11-03 09:49 | Emergency (ER) ==
[2016-11-03 09:49] VITALS: BMI 31.7
[2016-11-03 09:52] VITALS: BP 157/92; TEMP 97.7
[2016-11-03 10:49] LABS: BASOPHILS # (AUTO) 0.1 K/uL (0-0.2); BASOPHILS % (AUTO) 0.8 % (0.0-3.0); EOSINOPHILS # (AUTO) 0.3 K/ul (0.0-0.7); EOSINOPHILS % (AUTO) 4.1 % (0.0-7.0); HEMATOCRIT 49.8 % (42.0-52.0); HEMOGLOBIN 16.8 g/dl (14.0-18.0); IMMATURE GRANULOCYTE % (AUTO) 0.4 % (0.0-5.0); LYMPHOCYTES # (AUTO) 1.4 K/uL (0.60-3.4); LYMPHOCYTES % (AUTO) 19.2 (10.0-50.0); MEAN CORPUSCULAR HEMOGLOBIN 30.9 pg (27.0-31.0); MEAN CORPUSCULAR HGB CONC 33.7 (31.8-35.4); MEAN CORPUSCULAR VOLUME 91.7 fl (80.0-94.0); MONOCYTES # (AUTO) 0.7 K/uL (0.4-2.0); MONOCYTES % (AUTO) 9.7 (0-10); NEUTROPHILS # (AUTO) 4.8 K/ul (2.0-6.9); NEUTROPHILS % (AUTO) 65.8; PLATELET COUNT 168 10^3/uL (140-440); RED BLOOD COUNT 5.43 10^6/ul (4.70-6.10)
[2016-11-03 10:51] LABS: BILIRUBIN,URINE 1+ (NEGATIVE); KETONES,URINE Trace (NEGATIVE); LEUKOCYTE ESTERASE ,URINE Negative (NEGATIVE); NITRITE,URINE Negative (NEGATIVE); PH,URINE 5.5 (5-9); PROTEIN,URINE 1+ (NEGATIVE); URINE, BLOOD Negative (NEGATIVE)
[2016-11-03 10:53] LABS: ADD URINE MICROSCOPIC YES
--- NOTE | 2016-11-03 11:14 | DI ---
EXAM: Two views of the chest. History: Cough. Comparison: Chest CT 10/31/2016 Findings: Heart size is normal. No change in the chronic-appearing right lower lobe infiltrate and small chronic right pleural effusion. No developing opacities. No pneumothorax. No acute osseous abnormalities. Impression: No significant interval change in cardiopulmonary status.
[2016-11-03 11:28] LABS: ALANINE AMINOTRANSFERASE 32 U/L (12-78); ALBUMIN 3.9 g/dL (3.4-5.0); ALBUMIN/GLOBULIN RATIO 1.18; ALKALINE PHOSPHATASE 76 U/L (50-136); AMYLASE 70 U/L (25-115); ANION GAP 14.3; ASPARTATE AMINO TRANSFERASE 25 U/L (15-37); BILIRUBIN,TOTAL 0.34 mg/dL (0.00-1.20); BLOOD UREA NITROGEN 16 mg/dL (7-18); BUN/CREATININE RATIO 13.55; CALCIUM 9.1 mg/dL (8.2-10.2); CARBON DIOXIDE 26 mmol/L (21-32); CHLORIDE 103 mmol/L (98-107); CREATINE KINASE 101 U/L; CREATININE 1.18 mg/dL (0.60-1.10); GLUCOSE 110 mg/dL (70-100); LIPASE 53 U/L (8-78); POTASSIUM 4.3 mmol/L (3.5-5.1); SODIUM 139 mmol/L (136-145); TOTAL PROTEIN 7.2 g/dL (6.4-8.2)
--- NOTE | 2016-11-03 11:59 | ED.PDOC ---
General ED Provider: Dr. RAMSES TILLMAN Chief Complaint: Non-specific Complaint Stated Complaint: weakness Time Seen by Physician: 10:00 (seen with nursing at all times ) Mode of Arrival: Walk-In Information Source: Patient Exam Limitations: No limitations Primary Care Provider: NADER HER Nursing and Triage Documentation Reviewed and Agree: Yes Neurological Complaint Exam - Weakness Complaint/Exam Last Known Well: generalized weakness seen in e/d for same issue work up was negative Onset: Gradual Duration: 1 week Symptoms Are: Still present Timing: Constant Episodes Lasting: Days Initial Severity: Mild Current Severity: Mild Character: Reports: Weak Aggravating: Reports: None Alleviating: Reports: None Associated Signs and Symptoms: Denies: Nausea, Vomiting, Diaphoresis, Tinnitus, Chest pain, Short of air, Palpitations, Unsteady gait, GI blood loss, Visual changes, Decreased oral intake, Change in medication, Change in diet, OTC meds, Loss of balance Cardiac Risk Factors: Reports: Hypertension, Smoking CVA Risk Factors: Reports: Hypertension, Smoking Related Surgical History: Reports: None JVD Present: No Carotid Bruit Present: No Rectal Heme Positive: No Glascow Coma Scale (see protocol): 15 Nystagmus Present: No Gag Reflex Present: No Meningeal Signs Positive: No Focal Weakness: Present: None Focal Sensory Loss: Present: None Gait: Normal Babinski Sign: Negative Right, Negative Left Differential Diagnoses: Hypovolemia, Medication reaction, Metabolic abnormalities, Vasovagal reaction Quality Indicators for Cardiac Chest Pain: EKG in 10min. Quality Indicators for AMI: EKG in 10min. Quality Indicator For Non-Traumatic Chest Pain/Syncope: EKG Performed Review of Systems - Review Of Systems Constitutional: Reports: Malaise, Weakness Eyes: Reports: No symptoms Ears, Nose, Mouth, Throat: Reports: No symptoms Respiratory: Reports: No symptoms Cardiac: Reports: No symptoms GI: Reports: No symptoms : Reports: No symptoms Musculoskeletal: Reports: No symptoms Skin: Reports: No symptoms Neurological: Reports: No symptoms Endocrine: Reports: No symptoms Hematologic/Lymphatic: Reports: No symptoms All Other Systems: Reviewed and Negative Past Medical History - Past Medical History Previously Healthy: Yes Endocrine: Reports: None, Dyslipidemia Cardiovascular: Reports: Hypertension Respiratory: Reports: None Hematological: Reports: None Gastrointestinal: Reports: GERD Genitourinary: Reports: None Neuro/Psych: Reports: CVA, Anxiety Musculoskeletal: Reports: Arthritis, Back Pain Cancer: Reports: None - Surgical History General Surgical History: Reports: None - Family History Family History: Reports: None - Social History Smoking Status: Current every day smoker Hx Substance Use: No Alcohol Screening: Heavy Physical Exam - Physical Exam Appearance: Well-appearing, No pain distress, Well-nourished Eyes: JESSICA, EOMI, Conjunctiva clear ENT: Ears normal, Nose normal, Oropharynx normal Respiratory: Airway patent, Breath sounds clear, Breath sounds equal, Respirations nonlabored Cardiovascular: RRR, Pulses normal, No rub, No murmur GI/: Soft, Nontender, No masses, Bowel sounds normal, No Organomegaly Musculoskeletal: Normal strength, ROM intact, No edema, No calf tenderness Skin: Warm, Dry, Normal color Neurological: Sensation intact, Motor intact, Reflexes intact, Cranial nerves intact, Alert, Oriented Psychiatric: Affect appropriate, Mood appropriate Interpretation - Radiology Interpretation Radiology Interpretation By: Radiologist Radiology Results: No acute changes - Skelp Processor Rate: Normal Rhythm: Sinus Ectopy: None - EKG Interpretation Rate: Normal Rhythm: Sinus Ectopy: None [place]: [place] ST Segment: Normal (rbbb) Critical Care Note - Critical Care Note Total Time (mins): 0 Course - Course Hematology/Chemistry: 11/03/16 10:29 11/03/16 10:29 Orders, Labs, Meds: Lab Review 11/03/16 11/03/16 10:20 10:29 WBC 7.30 RBC 5.43 Hgb 16.8 Hct 49.8 MCV 91.7 MCH 30.9 MCHC 33.7 RDW Coeff of Matthew 13.3 Plt Count 168 Immature Gran % (Auto) 0.4 Neut % (Auto) 65.8 Lymph % (Auto) 19.2 [place] % (Auto) 9.7 Eos % (Auto) 4.1 Baso % (Auto) 0.8 Immature Gran # (Auto) 0.0 Neut # 4.8 Lymph # 1.4 [place] # 0.7 Eos # 0.3 Baso # 0.1 Sodium 139 Potassium 4.3 Chloride 103 Carbon Dioxide 26 Anion Gap 14.3 BUN 16 Creatinine 1.18 H Estimated GFR (MDRD) 80.00 BUN/Creatinine Ratio 13.55 Glucose 110 H Calcium 9.1 Total Bilirubin 0.34 AST 25 ALT 32 Alkaline Phosphatase 76 Total Creatine Kinase 101 Troponin I < 0.0100 Total Protein 7.2 Albumin 3.9 Globulin 3.3 Albumin/Globulin Ratio 1.18 Amylase 70 Lipase 53 TSH 1.333 Free T4 1.00 Urine Color Yellow Urine Clarity Clear Urine pH 5.5 Ur Specific [place] 1.020 Urine Protein 1+ Urine Glucose (UA) Negative Urine Ketones Trace Urine Blood Negative Urine Nitrite Negative Urine Bilirubin 1+ Urine Urobilinogen 1.0 Ur Leukocyte Esterase Negative Urine Microscopic WBC 0-2 Ur Squamous Epith Cells Not present Hyaline Casts 0-2 Urine Mucus 1+ Orders Category Date Time Status EKG-(ED ONLY) Stat CARDIO 11/03/16 10:13 Completed AMYLASE Stat LAB 11/03/16 10:29 Completed BLOOD CULTURE Stat LAB 11/03/16 10:29 Received CBC W/ AUTO DIFF Stat LAB 11/03/16 10:29 Completed COMPREHENSIVE METABOLIC PANEL Stat LAB 11/03/16 10:29 Completed CREATINE KINASE Stat LAB 11/03/16 10:29 Completed EHRLICHIA DNA, PCR Stat LAB 11/03/16 10:29 Received FREE T4 (FREE THYROXINE) Stat LAB 11/03/16 10:29 Completed LIPASE Stat LAB 11/03/16 10:29 Completed LYME, WESTERN BLOT, SERUM Stat LAB 11/03/16 10:29 Received JONI MTN SPOTTED FEVER,IgG Stat LAB 11/03/16 10:29 Received JONI MTN SPOTTED FEVER,IgM Stat LAB 11/03/16 10:29 Received THYROID STIMULATING HORMONE Stat LAB 11/03/16 10:29 Completed TROPONIN I Stat LAB 11/03/16 10:29 Completed URINALYSIS C & S IF INDICATED Stat LAB 11/03/16 10:20 Completed CHEST, 2 VIEWS PA & LAT Stat RADS 11/03/16 10:16 Completed Vital Signs: Temp Pulse Resp BP Pulse Ox 11/03/16 09:49 97.7 F 85 18 157/92 H 95 Departure - Departure Time of Disposition: 11:59 (seen with aramis and staff at all times ) Disposition: HOME SELF-CARE Discharge Problem: Generalized weakness Instructions: Weakness (ED) Condition: Good Pt referred to PMD for follow-up: Yes Additional Instructions: Please call your Family Physician as soon as possible to schedule a follow-up appointment. Allergies/Adverse Reactions: Allergies No Known Allergies Allergy (Verified 11/03/16 09:52) Home Medications: Ambulatory Orders Enalapril Maleate [Vasotec] 10 mg PO DAILY 11/01/12 Budesonide/Formoterol Fumarate [Symbicort 80-4.5 Mcg Inhaler] 2 inh INH BID 10/07 Ranitidine HCl [Zantac] 150 mg PO BIDAC 02/25/14 Aspirin 81 mg PO ONCE 11/13/15 Atorvastatin Calcium [Lipitor] 20 mg PO DAILY 11/13/15 Diazepam 5 mg PO PRN PRN #50 10/20/16 Disposition Discussed With: Patient
[2016-11-05 19:09] LABS: IGG P18 AB Absent (.); IGG P23 AB Absent (.); IGG P28 AB Absent (.); IGG P30 AB Absent (.); IGG P39 AB Absent (.); IGG P41 AB Absent (.); IGG P45 AB Absent (.); IGG P58 AB Absent (.); IGG P66 AB Absent (.); IGG P93 AB Absent (.); IGM P39 AB Absent (.); IGM P41 AB Absent (.)
[2016-11-06 08:21] LABS: LYME IGG WB INTERP Negative (.); LYME IGM WB INTERP Negative (.)
== END 2016-11-03 12:14 | disposition home or self-care (01) ==
LOC: ED 09:49
DX: R53.1 Weakness (principal); I10 Essential (primary) hypertension; E78.5 Hyperlipidemia, unspecified; F17.210 Nicotine dependence, cigarettes, uncomplicated; Z86.73 Personal history of transient ischemic attack (TIA), and cerebral infarction without residual deficits; Z79.899 Other long term (current) drug therapy
CPT/HCPCS: 36415; 80053; 81001; 82150; 82550; 83690; 84439; 84443; 84484; 85025; 86617; 86757; 87040; 87798; 93005; 93010; 99283

== ENCOUNTER 2017-01-21 12:06 | Inpatient (IN) ==
[2017-01-21 12:16] VITALS: BMI 30.7
--- NOTE | 2017-01-21 12:36 | ED.PDOC ---
General ED Provider: Dr. ANDREW MILLER Chief Complaint: Extremity Swelling/Pain Stated Complaint: right lower leg red and swollen x 2weeks. right foot also red over distal portion. Patient denies any pain but acknowledges that since his stroke he doesn't have much sensation in his right lower extremity. No fever or chills, nausea or vomiting. Saw PCP yesterday who told him to go to ED. Time Seen by Physician: 12:36 Mode of Arrival: Walk-In Information Source: Patient Primary Care Provider: THOMAS HER Nursing and Triage Documentation Reviewed and Agree: Yes Skin Complaint Exam - Skin/Soft Tissue Complaint/Exam Onset/Duration: 2 weeks Symptoms Are: Still present Timing: Constant Initial Severity: Mild Current Severity: Severe Location: right lower extremity from toes to mid thigh Character: Reports: Redness, Swelling Aggravating: Reports: None Alleviating: Reports: None Related History: Reports: Recent trauma (has fallen out his front door several times scratching lower legs), Immunocompromised (right leg weak adn less sensitive to pain since CVA. Right foot is recovering from infection and decubitus ulcer which has healed. Foot has bBecome red & swollen in the last 2 weeks.) Related Surgical History: Reports: None Recent Exposure to Others w/Similar Symptoms: No Skin Findings: Present: Erythema (right distal foot and toes, right leg from ankle to midthigh), Induration (right leg from ankle to midthigh), Other ( fungal dermatitis between toes of right foot) Joint Tenderness Present: No Differential Diagnoses: Cellulitis Review of Systems - Review Of Systems Constitutional: Reports: No symptoms Eyes: Reports: No symptoms Ears, Nose, Mouth, Throat: Reports: No symptoms Respiratory: Reports: No symptoms Cardiac: Reports: No symptoms GI: Reports: No symptoms : Reports: No symptoms Musculoskeletal: Reports: No symptoms Skin: Reports: Change in color, Rash, Other (swelling of right leg) Neurological: Reports: Weakness (chronic right leg weakness - unchanged per patient) All Other Systems: Reviewed and Negative Past Medical History - Past Medical History Previously Healthy: Yes Endocrine: Reports: None, Dyslipidemia Cardiovascular: Reports: Hypertension Respiratory: Reports: None Hematological: Reports: None Gastrointestinal: Reports: GERD Genitourinary: Reports: None Neuro/Psych: Reports: CVA, Anxiety Musculoskeletal: Reports: Arthritis, Back Pain Cancer: Reports: None - Surgical History General Surgical History: Reports: None - Family History Family History: Reports: None - Social History Smoking Status: Current every day smoker, Heavy tobacco smoker Amount Smokes or Chewing Tobacco Used Daily: 1 PPD Hx Substance Use: No Alcohol Screening: Heavy Lives: Alone - Immunizations Tetanus Shot up to Date: No Influenza Vaccine within 12 Months: No Pneumococcal Vaccine up to Date: No Physical Exam - Physical Exam Appearance: Well-appearing, Obese (moderately obese) Ill-appearing: None Pain Distress: None Eyes: JESSICA, EOMI, Conjunctiva clear ENT: Ears normal, Nose normal, Oropharynx normal Neck: Supple Respiratory: Airway patent, Breath sounds clear, Breath sounds equal, Respirations nonlabored Cardiovascular: RRR, Pulses normal, No rub, No murmur GI/: Soft, Nontender, No masses, Bowel sounds normal, No Organomegaly Musculoskeletal: ROM intact, No calf tenderness, Limited strength (right leg is +3-4/5 vs 5/5 on left), Edema (+1 nonpitting edema of right leg) Skin: Warm (right leg is slightly warmer than left and erythematous, same with dital right foot), Dry Neurological: Motor intact, Reflexes intact, Cranial nerves intact, Alert, Oriented, Focal Deficit (right leg doesn't react to needlestick. Left leg has normal response.) Psychiatric: Affect appropriate, Mood appropriate Physician Notification - Case Discussed Physician Notified: Thomas Her MD Time of Notification: 15:12 (Agrees with hospitalization. He does not have admitting privileges.) Endorsed To/Discussed With: Dr. De Oliveira Time of Discussion: 15:27 Admit/Transition Orders Entered by ED Provider: Yes Admit To: Inpatient Critical Care Note - Critical Care Note Total Time (mins): 0 Course - Course Hematology/Chemistry: 01/21/17 14:10 01/21/17 14:10 Orders, Labs, Meds: Lab Review 01/21/17 01/21/17 01/21/17 14:10 14:10 14:10 WBC 7.70 RBC 5.52 Hgb 17.9 Hct 53.1 H MCV 96.2 H MCH 32.4 H MCHC 33.7 RDW Coeff of Matthew 14.0 Plt Count 165 Immature Gran % (Auto) 0.4 Neut % (Auto) 69.0 Lymph % (Auto) 15.8 [place] % (Auto) 11.6 H Eos % (Auto) 2.7 Baso % (Auto) 0.5 Immature Gran # (Auto) 0.0 Neut # 5.4 Lymph # 1.2 [place] # 0.9 Eos # 0.2 Baso # 0.0 Sodium 139 Potassium 4.4 Chloride 103 Carbon Dioxide 27 Anion Gap 13.4 BUN 25 H Creatinine 1.31 H Estimated GFR (MDRD) 71.00 BUN/Creatinine Ratio 19.08 Glucose 99 Calcium 9.9 Total Bilirubin 0.61 AST 22 ALT 31 Alkaline Phosphatase 89 Total Protein 7.7 Albumin 3.9 Globulin 3.8 Albumin/Globulin Ratio 1.03 Urine Color Yellow Urine Clarity Clear Urine pH 5.5 Ur Specific [place] <=1.005 Urine Protein Negative Urine Glucose (UA) Negative Urine Ketones Negative Urine Blood Negative Urine Nitrite Negative Urine Bilirubin Negative Urine Urobilinogen 0.2 Ur Leukocyte Esterase Negative Orders Category Date Time Status BLOOD CULTURE Stat LAB 01/21/17 14:10 Received CBC W/ AUTO DIFF Stat LAB 01/21/17 14:10 Completed COMPREHENSIVE METABOLIC PANEL Stat LAB 01/21/17 14:10 Completed URINALYSIS C & S IF INDICATED Stat LAB 01/21/17 14:10 Completed Vital Signs: Temp Pulse Resp BP Pulse Ox 01/21/17 12:07 99.1 F 78 20 136/76 91 L Departure - Departure Time of Disposition: 15:49 Disposition: ADMITTED INPATIENT Discharge Problem: Cellulitis of foot, right, Cellulitis of right leg Condition: Good Pt referred to PMD for follow-up: Yes Allergies/Adverse Reactions: Allergies No Known Allergies Allergy (Verified 01/21/17 12:17) Home Medications: Ambulatory Orders Enalapril Maleate [Vasotec] 10 mg PO DAILY 11/01/12 Budesonide/Formoterol Fumarate [Symbicort 80-4.5 Mcg Inhaler] 2 inh INH BID 10/07 Ranitidine HCl [Zantac] 150 mg PO BIDAC 02/25/14 Aspirin 81 mg PO ONCE 11/13/15 Atorvastatin Calcium [Lipitor] 20 mg PO BEDTIME 11/13/15 Clopidogrel Bisulfate [Plavix] 75 mg PO DAILY 01/21/17 Diazepam [Valium] 5 mg PO TID 01/21/17 Disposition Discussed With: Patient
[2017-01-21 14:29] LABS: BILIRUBIN,URINE Negative (NEGATIVE); KETONES,URINE Negative (NEGATIVE); LEUKOCYTE ESTERASE ,URINE Negative (NEGATIVE); NITRITE,URINE Negative (NEGATIVE); PH,URINE 5.5 (5-9); PROTEIN,URINE Negative (NEGATIVE); URINE, BLOOD Negative (NEGATIVE)
[2017-01-21 14:30] LABS: ADD URINE MICROSCOPIC NO
[2017-01-21 14:39] LABS: ALBUMIN 3.9 g/dL (3.4-5.0); ALBUMIN/GLOBULIN RATIO 1.03; ANION GAP 13.4; BILIRUBIN,TOTAL 0.61 mg/dL (0.00-1.20); CALCIUM 9.9 mg/dL (8.2-10.2); CREATININE 1.31 mg/dL (0.60-1.10); POTASSIUM 4.4 mmol/L (3.5-5.1); TOTAL PROTEIN 7.7 g/dL (6.4-8.2)
[2017-01-21 14:40] LABS: BUN/CREATININE RATIO 19.08
[2017-01-21 14:41] LABS: HEMATOCRIT 53.1 % (42.0-52.0); HEMOGLOBIN 17.9 g/dl (14.0-18.0); MEAN CORPUSCULAR HEMOGLOBIN 32.4 pg (27.0-31.0); MEAN CORPUSCULAR HGB CONC 33.7 (31.8-35.4); MEAN CORPUSCULAR VOLUME 96.2 fl (80.0-94.0); PLATELET COUNT 165 10^3/uL (140-440); RED BLOOD COUNT 5.52 10^6/ul (4.70-6.10)
[2017-01-21 14:42] LABS: BASOPHILS % (AUTO) 0.5 % (0.0-3.0); EOSINOPHILS # (AUTO) 0.2 K/ul (0.0-0.7); EOSINOPHILS % (AUTO) 2.7 % (0.0-7.0); LYMPHOCYTES # (AUTO) 1.2 K/uL (0.60-3.4); LYMPHOCYTES % (AUTO) 15.8 (10.0-50.0); MONOCYTES # (AUTO) 0.9 K/uL (0.4-2.0); MONOCYTES % (AUTO) 11.6 (0-10); NEUTROPHILS # (AUTO) 5.4 K/ul (2.0-6.9)
[2017-01-21 14:43] LABS: IMMATURE GRANULOCYTE % (AUTO) 0.4 % (0.0-5.0)
[2017-01-21] MEDS ORDERED: TYLENOL PO PRN (15:27)
[2017-01-21] MEDS ORDERED: ROCEPHIN ONE (15:55)
[2017-01-21] MEDS: ROCEPHIN 1 GM in SODIUM CHLORIDE 50 ML IV SCH (16:08)
--- NOTE | 2017-01-21 16:36 | US ---
EXAM: Right lower extremity venous Doppler HISTORY: Concern for DVT with lower extremity erythema. COMPARISON: None TECHNIQUE: Sonographic and Doppler evaluation of the right lower extremity vessels from the common f emoral through the anterior tibial veins were obtained. Augmentation and compression techniques were also performed. FINDINGS: There is spontaneous Doppler flow seen in the right lower extremity veins from the common femoral through the anterior tibial veins. There is normal compression and augmentation throughout t he lower extremity veins. There is no visualized reflux. Sonographic appearance of the soft tissues demonstrates lymph nodes in the right groin with the largest measuring 5.9 x 8 x 1.9 x 5.9 centimete rs. There is scattered lower extremity subcutaneous edema IMPRESSION: 1. No right lower extremity thrombus. 2. Right inguinal lymph nodes and subcutaneous edema
[2017-01-21] MEDS ORDERED: ASPIRIN CHEWABLE PO SCH (18:00)
[2017-01-21] MEDS: SODIUM CHLORIDE 1,000 ML IV SCH (20:14)
[2017-01-21] MEDS: VALIUM PO SCH (20:15)
[2017-01-21] MEDS: VANCOMYCIN 1 GM in SODIUM CHLORIDE 250 ML IV SCH ×2 (20:15→20:26)
[2017-01-21] MEDS: LIPITOR PO SCH (20:15)
[2017-01-22] MEDS: VANCOMYCIN 1 GM in SODIUM CHLORIDE 250 ML IV SCH ×4 (05:12→20:36)
[2017-01-22] MEDS: SODIUM CHLORIDE 1,000 ML IV SCH (05:16)
[2017-01-22] MEDS: ZANTAC PO SCH ×2 (05:33→16:57)
[2017-01-22 06:33] LABS: BASOPHILS % (AUTO) 0.6 % (0.0-3.0); EOSINOPHILS # (AUTO) 0.4 K/ul (0.0-0.7); EOSINOPHILS % (AUTO) 5.3 % (0.0-7.0); HEMOGLOBIN 16.7 g/dl (14.0-18.0); IMMATURE GRANULOCYTE % (AUTO) 0.3 % (0.0-5.0); LYMPHOCYTES # (AUTO) 1.3 K/uL (0.60-3.4); LYMPHOCYTES % (AUTO) 18.6 (10.0-50.0); MEAN CORPUSCULAR HEMOGLOBIN 31.9 pg (27.0-31.0); MEAN CORPUSCULAR HGB CONC 32.7 (31.8-35.4); MEAN CORPUSCULAR VOLUME 97.5 fl (80.0-94.0); MONOCYTES # (AUTO) 0.8 K/uL (0.4-2.0); NEUTROPHILS # (AUTO) 4.6 K/ul (2.0-6.9); NEUTROPHILS % (AUTO) 64.2; PLATELET COUNT 167 10^3/uL (140-440); RED BLOOD COUNT 5.23 10^6/ul (4.70-6.10); WHITE BLOOD COUNT 7.11 K/ul (4.2-10.2)
[2017-01-22 06:38] LABS: ANION GAP 16.3; BUN/CREATININE RATIO 20.56; CALCIUM 9.2 mg/dL (8.2-10.2); CREATININE 1.07 mg/dL (0.60-1.10); POTASSIUM 4.3 mmol/L (3.5-5.1)
[2017-01-22] MEDS ORDERED: NON-FORMULARY MEDICATION (Enalapril Maleate [Vasotec] 10 MG) PO SCH ×22 (09:00)
[2017-01-22] MEDS: PLAVIX PO SCH (09:32)
[2017-01-22] MEDS: IMDUR PO SCH (09:32)
[2017-01-22] MEDS: VASOTEC PO SCH (09:32)
[2017-01-22] MEDS: ASPIRIN CHEWABLE PO SCH (09:32)
[2017-01-22] MEDS: SYMBICORT 80-4.5 MCG INHALER IH SCH ×3 (09:33→20:38)
[2017-01-22] MEDS: TOPROL XL PO SCH (09:33)
[2017-01-22] MEDS: VALIUM PO SCH ×3 (09:34→20:36)
[2017-01-22] MEDS: ROCEPHIN 1 GM in SODIUM CHLORIDE 50 ML IV SCH (09:34)
[2017-01-22] MEDS ORDERED: SODIUM CHLORIDE 1,000 ML IV SCH (09:44)
[2017-01-22] MEDS: LIPITOR PO SCH (20:36)
[2017-01-23] MEDS: VANCOMYCIN 1 GM in SODIUM CHLORIDE 250 ML IV SCH (05:00)
[2017-01-23] MEDS: ZANTAC PO SCH (05:34)
[2017-01-23 06:12] LABS: BASOPHILS % (AUTO) 0.4 % (0.0-3.0); EOSINOPHILS # (AUTO) 0.3 K/ul (0.0-0.7); EOSINOPHILS % (AUTO) 3.9 % (0.0-7.0); HEMATOCRIT 48.8 % (42.0-52.0); HEMOGLOBIN 16.2 g/dl (14.0-18.0); IMMATURE GRANULOCYTE % (AUTO) 0.4 % (0.0-5.0); LYMPHOCYTES # (AUTO) 1.2 K/uL (0.60-3.4); LYMPHOCYTES % (AUTO) 14.7 (10.0-50.0); MEAN CORPUSCULAR HEMOGLOBIN 32.3 pg (27.0-31.0); MEAN CORPUSCULAR HGB CONC 33.2 (31.8-35.4); MEAN CORPUSCULAR VOLUME 97.2 fl (80.0-94.0); MONOCYTES # (AUTO) 0.9 K/uL (0.4-2.0); MONOCYTES % (AUTO) 10.6 (0-10); NEUTROPHILS # (AUTO) 5.6 K/ul (2.0-6.9); PLATELET COUNT 163 10^3/uL (140-440); RED BLOOD COUNT 5.02 10^6/ul (4.70-6.10); WHITE BLOOD COUNT 8.01 K/ul (4.2-10.2)
[2017-01-23 07:02] LABS: ANION GAP 16.2; BUN/CREATININE RATIO 17.59; CALCIUM 8.9 mg/dL (8.2-10.2); CREATININE 1.08 mg/dL (0.60-1.10); POTASSIUM 4.2 mmol/L (3.5-5.1)
[2017-01-23] MEDS: SYMBICORT 80-4.5 MCG INHALER IH SCH ×2 (08:59→09:01)
[2017-01-23] MEDS: VALIUM PO SCH ×2 (09:00→15:23)
[2017-01-23] MEDS: IMDUR PO SCH (09:00)
[2017-01-23] MEDS: VASOTEC PO SCH (09:00)
[2017-01-23] MEDS: ASPIRIN CHEWABLE PO SCH (09:00)
[2017-01-23] MEDS: ROCEPHIN 1 GM in SODIUM CHLORIDE 50 ML IV SCH (09:00)
[2017-01-23] MEDS: PLAVIX PO SCH (09:01)
[2017-01-23] MEDS: TOPROL XL PO SCH (09:01)
[2017-01-23 15:03] VITALS: BP 118/82; TEMP 98.1
[2017-01-23] MEDS ORDERED: VANCOMYCIN 1 GM in SODIUM CHLORIDE 250 ML IV SCH (21:00)
--- NOTE | 2017-01-28 11:20 | HP ---
DATE OF SERVICE: 01/21/17 CHIEF COMPLAINT: Right lower extremity swelling and redness. HISTORY OF PRESENT ILLNESS: This is a 46 year old with a history of CVA. Went to see Dr. Thomas Real in his office. The patient was having the swelling and the redness in the right lower extremity just above the knee to the mid thigh of the right leg and rest of the leg was all red. The patient came and saw Dr. Joshi in the emergency room. The patient did have circumferential redness and swelling and tenderness. At that time the patient was admitted to the hospital for the IV antibiotics treatment and ruling out DVT's. REVIEW OF SYSTEMS: CONSTITUTIONAL: No fever, no chills. HEENT: Normal. ENDOCRINE: No weight gain; no weight loss. CVS: No chest pain. No PND, no orthopnea. No shortness of breath. No PND, no orthopnea. History of right sided CVA with hemiparesis. RESPIRATORY: No cough, no congestion. No hemoptysis. GI: No nausea, no vomiting. No abdominal pain. No melena. : No hematuria. No polyuria. EXTREMITIES: Right lower extremity swelling and redness. MUSCULOSKELETAL: No joint swelling. PSYCHIATRIC: Not anxious. No depression. No suicidal thoughts. No homicidal thoughts. SKIN: Intact, no open lesions. PAST MEDICAL HISTORY: Coronary artery disease Angina Dyslipidemia Irregular heart beat Hypertension History of seizure disorder Osteoarthritis History of CVA with right hemiparesis Nicotine use Depression PAST SURGICAL HISTORY: None PERSONAL HISTORY: The patient does smoke and drink alcohol sometimes. Family history is significant for the heart problems, diabetes and cancer. MEDICATIONS: Vasotec 10mg daily Symbicort Zantac 150mg twice a day Lipitor 10mg daily Aspirin 81mg PO daily Imdur 30mg daily Valium 5mg three times a day Plavix 75mg PO daily Toprol XL 50mg Daily ALLERGIES: No known medications. PHYSICAL EXAMINATION: V/S: Blood pressure 136/76, respiratory rate 20, heart rate 78, temperature 99.1 with saturation 91% on the room air. HEENT: Atraumatic, normocephalic. No scleral icterus. Mucosa dry. NECK: Supple. No JVD, no bruit. No lymphadenopathy. No thyromegaly. HEART: S1, S2 normal. No murmur. No cyanosis or clubbing. No ascites. LUNGS: Decreased and clear to auscultation. No rales or rhonchi. ABDOMEN: Soft, nontender. Bowel sounds are active. No CVA tenderness. No rigidity or guarding. EXTREMITIES: No cyanosis, clubbing or pedal edema. bilateral lower extremity edema is at 2+ present and the right lower extremity redness, swelling and warmness to touch and no pain. In the right lower extremity just midthigh just above the patella to right lower extremity circumferential redness and the tightness is present. The patient says that he doesn't have any sensation since he had a stroke in the right lower extremity so pain can not be illicit. MUSCULOSKELETAL: Normal joints, no swelling. NEUROLOGIC: The patient is SKIN: Intact; no open lesions. LYMPHATIC: No lymph nodes palpable. LABS: WBC 7.70, hgb 17.9, hct 53.1, plt count 165, sodium 139, potassium 4.4, chloride 103, Bicarb 27, BUN 25, creatinine 1.31, U/A negative. ASSESSMENT: 1. Right lower extremity defused circumferential cellulitis, rule out DVT 2. History of CVA right hemiparesis 3. Coronary artery disease 4. Angina 5. History of seizure disorder 6. Osteoarthritis 7. DJD spine PLAN: 1. Admit patient to the regular floor 2. CBC and CMP today and daily 3. Cardiac enzymes and troponin 4. Venous Doppler Right lower extremity 5. Rocephin 1 gram daily 6. Vancomycin 1 gram daily 7. IV fluids at 100ml per hour 8. Daily I&O's 9. Regular cardiac diet TIME SPENT: MORE THAN 70 minutes MTDD
--- NOTE | 2017-01-28 11:45 | PN ---
DATE OF SERVICE: 01/22/17 SUBJECTIVE: The patient was admitted with the right lower extremity redness and swelling. Somewhat better in the swelling and the redness but still has circumferential redness in the right lower extremity below the knee today. REVIEW OF SYSTEMS: CONSTITUTIONAL: No fever, no chills. HEENT: Normal. ENDOCRINE: No weight gain, no weight loss. CVS: No angina symptoms. No CHF symptoms. No palpitations. No atypical chest pain for CAD. No shortness of breath. No PND, no orthopnea. RESPIRATORY: No cough, no hemoptysis. EXTREMITY: Right lower extremity swelling and redness is present. Both lower extremity swelling is there but right lower extremity has redness of warmness to touch. GI: No nausea, no vomiting. No abdominal pain. : No hematuria. No polyuria. MUSCULOSKELETAL:. No joint swelling. PSYCHIATRIC: Not anxious. No depression. No suicidal thoughts. No homicidal thoughts. SKIN: Intact. No rash. PHYSICAL EXAMINATION: V/S: Blood pressure 130/85, respiratory rate 20, heart rate 84, temperature 98.0 , saturation 93% on 2 liters. HEENT: Normocephalic, atraumatic. NECK: Supple. No JVD, no carotid bruit. No lymphadenopathy. LUNGS: Clear to auscultation. No rales or rhonchi. HEART: S1, S2 normal. No S3. No murmur, gallop or regurgitation. ABDOMEN: Soft, nontender. Bowel sounds active. No rigidity. No rebound or guarding. No CVA tenderness. EXTREMITIES: No clubbing, cyanosis. Right leg circumferential swelling is present and redness is present. Pitting edema. No open sores but has some scratch charlton healing up. MUSCULOSKELETAL: No joint swelling. NEUROLOGIC: Awake, alert, oriented times three. No focal deficit. LYMPHATIC: No lymph nodes palpable. SKIN: Intact. LABS: Sodium 144, potassium 4.3, chloride 105, bicarb 27, BUN 22, creatinine 0.07, WBC 7.1, hgb 16.7, hct 51.0, plt count 167. ASSESSMENT: 1. Right lower extremity circumferential cellulitis negative for DVT 2. History of CVA with right hemiparesis 3. Stable angina 4. Continued nicotine use 5. DJD spine 6. Osteoarthritis 7. Depression 8. History of Seizure disorder PLAN: 1. Continue the Rocephin 2. Vancomycin 3. Will decrease the IV fluids to the 40ml per hour 4. Keep the leg elevated when resting 5. Continue the rest of the home medication TIME SPENT: More than 35 minutes MTDD
--- NOTE | 2017-02-22 15:26 | DS ---
DATE OF SERVICE: 01/23/17 FINAL DIAGNOSIS: 1. Right lower extremity cellulitis 2. Hypertension 3. Dyslipidemia 4. GERD 5. History of [place] in 2008 6. CVA with right sided hemiparesis 7. Bilateral dependant edema 8. Continued nicotine use 9. Seizure disorder, not on any medication 10.Osteoarthritis 11.DJD spine 12.Depression 13.History of alcohol use DISCHARGE INSTRUCTIONS: Discharge the patient home. Followup at the [facility] in 5-7 days. Please use some Probiotics and yogurt as antibiotic use can give the diarrhea. Continue the rest of the home medications. MEDICATIONS AT DISCHARGE: Aspirin Lipitor Symbicort Plavix Diazepam Vasotec Imdur Toprol Zantac NEW PRESCRIPTIONS: Clindamycin 300mg three times a day for 5 days DIET INSTRUCTIONS: Cardiac and healthy ACTIVITY: As much as tolerated SMOKING: Current everyday smoker DISEASE SPECIFIC EDUCATION: Right lower extremity cellulitis Risk of osteomyelitis been discussed and advised to keep the leg elevated when resting. Verbalized understanding. HOSPITAL COURSE: Xiang Canseco who is a 46 year old male with a history of CVA and right hemiparesis came to the emergency room with the swelling and redness and the pain in the right lower extremity. Seen by the ER physician as the patient was having the defused right lower extremity swelling with cellulitis and tenderness. The patient was admitted to the hospital. Venous Doppler is negative. The patient was started on the Rocephin and Vancomycin and by next day the cellulitis was a lot improved. With the given antibiotics it has decreased in the redness and swelling. The patient was up and about walking and continues go for smoking. Offered to place the Nicotine patch and offered Chantix the patient refused to quit smoking at this time. Gradually the swelling and redness both decreased in the right lower extremity and had a small superficial areas of redness. At that time the patient is being discharged home. Advised to have a followup with [facility] in 5-7 days. TIME SPENT: MORE THAN 55 MINUTES MTDD
== END 2017-01-23 15:16 | disposition home or self-care (01) | DRG 603 ==
LOC: ED 12:06 → MEDSURG A 15:40
PROVIDERS: ADMIT Emergency Medicine; ATTEND Emergency Medicine
DX: L03.115 Cellulitis of right lower limb (principal); I69.951 Hemiplegia and hemiparesis following unspecified cerebrovascular disease affecting right dominant side; L53.9 Erythematous condition, unspecified; B36.9 Superficial mycosis, unspecified; D89.9 Disorder involving the immune mechanism, unspecified; I20.8 Other forms of angina pectoris; M62.81 Muscle weakness (generalized); I10 Essential (primary) hypertension; E78.5 Hyperlipidemia, unspecified; K21.9 Gastro-esophageal reflux disease without esophagitis; R60.0 Localized edema; G40.909 Epilepsy, unspecified, not intractable, without status epilepticus; M19.90 Unspecified osteoarthritis, unspecified site; M47.9 Spondylosis, unspecified; F32.9 Major depressive disorder, single episode, unspecified; F10.21 Alcohol dependence, in remission; I25.2 Old myocardial infarction; F17.200 Nicotine dependence, unspecified, uncomplicated; Z79.02 Long term (current) use of antithrombotics/antiplatelets; Z79.899 Other long term (current) drug therapy
CPT/HCPCS: 36415; 80048; 80053; 80202; 81001; 85025; 87040; 96365; 99223; 99233; 99239; 99284

== ENCOUNTER 2017-02-01 10:21 | Outpatient (CLI) ==
--- NOTE | 2017-02-01 11:15 | CT ---
EXAM: CT BRAIN HISTORY: Headache TECHNIQUE: CT brain without intravenous contrast. 5-mm axial sections with Reformations. COMPARISON: 10/19/2016 FINDINGS: Brain is unremarkable without distinct evidence of hemorrhage or large vessel distribution recent i schemic infarction. There is no suggestion of acute hydrocephalus or subdural fluid collection. No intracranial mass or mass effect. There is a 1 cm left posteriolateral scalp nodule which is unchang ed since at least 07/31/2011 suggesting a benign entity. No skull fracture is identified. There are lucencies within the posterior maxilla at the level of th e molar teeth which may be related to previous oral surgery or dental disease. This can be evaluated by the patient's dentist. The previous studies reviewed failed to cover this field for comparison. Mastoid air cells are aerated. There is subtle mucosal thickening in the anterior ethmoid cells, odell lar to that previously seen. IMPRESSION: 1. No acute intracranial process. 2. Subtle chronic ethmoid sinusitis similar to that previously seen. 3. Lucencies within the posterior maxilla at the level of the molar teeth which may be related to pr evious oral surgery or dental disease. This can be evaluated by the patient's dentist.
== END 2017-02-01 10:22 | disposition home or self-care (01) ==
LOC: RAD 10:21
PROVIDERS: ATTEND Nurse Practitioner
DX: R51 Headache (principal)

== ENCOUNTER 2017-06-12 16:42 | Outpatient (CLI) | END 2017-06-12 16:43 | disposition short-term general hospital (02) | LOC: AMBL 16:42 | PROVIDERS: ATTEND Internal Medicine Geriatric Medicine | DX: R53.83 Other fatigue (principal); R53.1 Weakness; R09.02 Hypoxemia; R15.9 Full incontinence of feces; R32 Unspecified urinary incontinence; R06.2 Wheezing ==

== ENCOUNTER 2017-08-09 15:23 | Outpatient (CLI) | END 2017-08-09 15:24 | disposition home or self-care (01) | LOC: CAR 15:23 | DX: G47.33 Obstructive sleep apnea (adult) (pediatric) (principal) | CPT/HCPCS: 95811 ==

== ENCOUNTER 2017-09-01 14:21 | Outpatient (CLI) ==
--- NOTE | 2017-09-01 15:27 | DI ---
EXAM: Radiographs, left shoulder HISTORY: Left shoulder pain. COMPARISON: None available. TECHNIQUE: Three views. FINDINGS: Bone mineralization is normal. There is prominent vascular groove in the mid shaft of the clavicle. There is no fracture or dislocation. The joint spaces are maintained. No focal soft tis carlos abnormality is seen. IMPRESSION: No acute abnormality of the left shoulder.
--- NOTE | 2017-09-01 15:31 | DI ---
Exam: Single x-ray of the pelvis. Comparison: CT abdomen pelvis performed 10/31/2016. Reason for exam: Pain. FINDINGS: The pelvic ring is intact. No obvious fracture or dislocation is seen in either hip. Impression: No acute fracture is seen within the bony pelvis.
--- NOTE | 2017-09-01 15:32 | DI ---
Exam: Two x-rays of the right hip. Comparison: CT abdomen pelvis performed 10/31/2016. Reason for exam: Pain. FINDINGS: The right femoral head articulates with the acetabulum. There is mild degenerative diseas e with osteophyte formation and sclerotic change. No unexpected calcific soft tissue density or radi opaque retained foreign body. Impression: No acute fracture or dislocation in the right hip
== END 2017-09-01 14:22 | disposition home or self-care (01) ==
LOC: RAD 14:21
PROVIDERS: ATTEND Nurse Practitioner
DX: M25.551 Pain in right hip (principal); M25.812 Other specified joint disorders, left shoulder

== ENCOUNTER 2017-09-15 12:52 | Outpatient (CLI) ==
--- NOTE | 2017-09-15 13:45 | CT ---
EXAM: CT right hip without contrast. HISTORY: Right hip pain. COMPARISON: Radiograph 09/01/2017. Pelvic CT 10/31/2016. TECHNIQUE: Multiple axial images of the right hip were obtained without intravenous contrast. Image s were reformatted in the sagittal and coronal planes. FINDINGS: Bone mineralization is normal. No fracture or dislocation identified. Right hip joint sp rupa is mildly narrowed, and there is mild subchondral sclerosis and marginal osteophyte formation of the superior acetabulum. A few small cysts are present in the proximal femoral neck. No erosions ar e seen. Remainder of the visualized osseous structures are intact. There are multiple right inguinal lymph nodes the largest measuring up to 1.3 cm short axis on axial image 58. Left inguinal lymph nodes are not fully imaged but measure at least 1.1 cm also on axial i mage 58. The soft tissues are otherwise unremarkable IMPRESSION: 1. Mild right hip osteoarthritis. 2. Nonspecific bilateral inguinal lymphadenopathy.
== END 2017-09-15 12:53 | disposition home or self-care (01) ==
LOC: RAD 12:52
PROVIDERS: ATTEND Nurse Practitioner
DX: M25.551 Pain in right hip (principal)

== ENCOUNTER 2017-12-29 10:16 | Outpatient (CLI) ==
--- NOTE | 2017-12-29 12:19 | US ---
EXAM: Bilateral lower extremity venous doppler. HISTORY: Bilateral lower extremity swelling. COMPARISON: None available. TECHNIQUE: A duplex Doppler study was performed consisting of integrated two dimensional (2D) real-t kemar imaging color flow Doppler and Doppler spectral analysis utilizing linear array probes. FINDINGS: There is normal flow, venous waveforms, compressibility and augmentation of flow within th e right and left common femoral, greater saphenous, profunda, femoral, popliteal, posterior tibial, a nd peroneal veins as well as the left anterior tibial vein. The right anterior tibial vein was not i dentified. IMPRESSION: No evidence for right or left lower extremity deep vein thrombosis at the levels examined.
== END 2017-12-29 10:17 | disposition home or self-care (01) ==
LOC: RAD 10:16
PROVIDERS: ATTEND Nurse Practitioner
DX: R60.0 Localized edema (principal); R94.4 Abnormal results of kidney function studies
CPT/HCPCS: 36415; 80053

== ENCOUNTER 2018-01-20 13:45 | Outpatient (CLI) | END 2018-01-20 13:46 | disposition home or self-care (01) | LOC: LAB 13:45 | PROVIDERS: ATTEND Nurse Practitioner | DX: R94.4 Abnormal results of kidney function studies (principal) | CPT/HCPCS: 36415; 80053 ==

== ENCOUNTER 2018-07-29 11:55 | Outpatient (CLI) ==
--- NOTE | 2018-07-29 12:54 | DI ---
EXAM: Lumbar spine seven views, including oblique views and flexion and extension lateral views HISTORY: Back pain COMPARISON: 06/09/2010 TECHNIQUE: Seven views lumbar spine were performed including oblique views and flexion and extension lateral view FINDINGS: Sacroiliac joints intact. Sacral arcuate intact. Vertebral bodies normal height. No fra cture. Multilevel marginal osteophyte formation. Mild to moderate multilevel intervertebral disc sp rupa narrowing, with moderate to severe intervertebral disc space narrowing L5-S1. Multilevel facet a rthrosis. Bilateral pars defects L5. 4 mm anterolisthesis L5 on S1. No change with flexion or exte nsion. Atherosclerotic vascular calcification. IMPRESSION: 1. Chronic discogenic degenerative disease and facet arthrosis. 2. Bilateral pars defects L5. 4 mm anterolisthesis L5 on S1. No segment instability.
== END 2018-07-29 11:56 | disposition home or self-care (01) ==
LOC: RAD 11:55
PROVIDERS: ATTEND Preventive Medicine Obesity Medicine
DX: M54.5 Low back pain (principal)

== ENCOUNTER 2018-08-05 10:41 | Outpatient (CLI) ==
--- NOTE | 2018-08-05 12:46 | CT ---
EXAM: CT LUMBAR SPINE HISTORY: Low back pain TECHNIQUE: CT lumbar spine without contrast. 3-mm axial sections. Coronal and sagittal reformation s. COMPARISON: 10/16/2016 FINDINGS: Exam demonstrates and no obvious acute fracture. Severe degenerative disc and facet disease is noted especially from L3-S1 with there is endplate sclerosis and end plate lucencies/erosions. These endp late changes are only slightly more noticeable since previous exam and may be related to longstanding severe degenerative disc disease. Previous or ongoing osteomyelitis and diskitis not completely exc luded although probably less likely given relative stability. Correlate with patient history and phy sical exam. MRI is available if indicated. Multilevel disc bulging is present leading to central canal neural foraminal stenosis most apparent a t L4/L5 where there is moderate central/left paracentral stenosis as well as bilateral neural foramin al narrowing, similar to that previously seen. There is no evidence of paraspinal fluid collection. Incidental findings include chronic pleural thickening of the right lung base and scattered atherosc lerotic calcifications IMPRESSION: 1. Severe degenerative disc and facet disease. See first paragraph of report for details and recomm endations. 2. No acute fracture.
== END 2018-08-05 10:42 | disposition home or self-care (01) ==
LOC: RAD 10:41
PROVIDERS: ATTEND Nurse Practitioner
DX: M54.5 Low back pain (principal)

== ENCOUNTER 2018-08-16 13:17 | Outpatient (CLI) ==
--- NOTE | 2018-08-16 14:42 | US ---
EXAM: Ultrasound venous Doppler right and left lower extermity HISTORY: Swelling COMPARISON: 12/29/2017 TECHNIQUE: Venous duplex ultrasound of the right and left lower extremity was performed using color, prado-scale, and Doppler flow imaging. FINDINGS: There is normal color flow and compression of the right and left common femoral, greater s aphenous, profunda femoral, femoral, popliteal, peroneal, posterior tibial, and anterior tibial veins without evidence of intraluminal thrombus. IMPRESSION: No right or left lower extremity deep venous thrombosis.
== END 2018-08-16 13:18 | disposition home or self-care (01) ==
LOC: RAD 13:17
PROVIDERS: ATTEND Nurse Practitioner
DX: M79.89 Other specified soft tissue disorders (principal)

== ENCOUNTER 2018-09-16 11:06 | Outpatient (CLI) | END 2018-09-16 11:37 | disposition short-term general hospital (02) | LOC: AMBL 11:06 | PROVIDERS: ATTEND Internal Medicine | DX: R53.1 Weakness (principal); I95.9 Hypotension, unspecified; F17.210 Nicotine dependence, cigarettes, uncomplicated; R42 Dizziness and giddiness; R00.1 Bradycardia, unspecified; R06.02 Shortness of breath ==

== ENCOUNTER 2018-09-17 20:31 | Outpatient (CLI) | END 2018-09-17 20:58 | disposition short-term general hospital (02) | LOC: AMBL 20:31 | PROVIDERS: ATTEND Internal Medicine Geriatric Medicine | DX: R55 Syncope and collapse (principal) ==